=== PATIENT | male | born 1950 | race Caucasian/White ===

== ENCOUNTER 2017-08-30 16:47 | Inpatient (IN) | payer OTHER, MEDICARE ==
[~2017-08-30] VITALS: Ht 182.9 cm; Wt 65.7 kg
[2017-08-30] MEDS ORDERED: BISACODYL 10 MG SUPP RECTAL PRN (17:45)
[2017-08-30] MEDS ORDERED: TEMAZEPAM 15 MG CAP PO PRN (17:45)
[2017-08-30] MEDS ORDERED: ONDANSETRON HCL 4 MG/2 ML VIAL IVP PRN (17:45)
[2017-08-30] MEDS ORDERED: MAGNESIUM HYDROXIDE SUSP 30 ML CUP PO PRN (17:45)
[2017-08-30] MEDS ORDERED: NALOXONE HCL 0.4 MG/ML AMP IV PUSH PRN (17:45)
[2017-08-30] MEDS ORDERED: LACTULOSE SYRUP 20 GM/30 ML CUP PO PRN (17:45)
[2017-08-30] MEDS ORDERED: ACETAMINOPHEN 325 MG TAB PO PRN ×2 (17:45)
[2017-08-30] MEDS ORDERED: SENNOSIDES 8.6 MG TAB PO PRN (17:45)
[2017-08-30] MEDS ORDERED: METOCLOPRAMIDE HCL 10 MG/2 ML VIAL IV PUSH PRN (17:45)
[2017-08-30] MEDS ORDERED: HYDROmorphone HCL PF 2 MG/ML VIAL IV PRN ×3 (18:00)
[2017-08-30] MEDS ORDERED: DEXAMETHASONE SOD PHOS 20 MG/5 ML VIAL IV PUSH ONE (18:00)
--- NOTE | 2017-08-30 18:03 | HHI.HP ---
[facility] No Primary Care Physician Admission Diagnosis Intractable back pain Diagnoses: (1) Intractable back pain Diagnosis: Principal (2) History of head and neck cancer Diagnosis: Principal (3) Malignant neoplasm metastatic to lumbar spine with unknown primary site Diagnosis: Principal (4) History of dysphasia Diagnosis: Principal Chief Complaint: Back pain Travel History International Travel<30 Days: No Contact w/Intl Traveler <30 Da: No Traveled to Known Affected Are: No History of Present Illness Written by Gracie Lu, acting as scribe for Dr. Frost on 08/30/17 at 17: 59. is a 67-year-old male with past medical history significant for head and neck cancer s/p chemo and radiation therapy in May 2016 with subsequent dysphasia requiring PEG tube placement for feeding who presents to the hospital as a direct admit from patient's oncologist . Review of Dr. Murrieta's note, patient presented to her office to establish care. Noted to have intractable back pain, along with diffuse body pain, decreased appetite, and unintentional weight loss. Patient underwent nuclear medicine bone scan on August 22 which showed heterogeneous increased bony uptake from the mid thoracic region through the sacrum involving bony pelvic ring proximal Femara in multiple ribs. Review of note also reveals patient underwent MRI of thoracic spine with contrast on 08/22 and revealed post radiation changes of the spine with metastases lesions greatest at T9 and T10 with minimal loss of height at these levels. Enhancement of anterior lateral paravertebral regions as well as the anterior epidural space at T7-T11. Patient was noted to have intractable pain while at Dr. Schumacher's office, referred to ED for direct admission. Patient is seen and examined in his bed resting comfortably, does not appear to be in any pain. Reports that over the past several weeks he has been taking oxycodone for pain control and complains of increased dry mouth. He is also been eating minimally trying to eat enough calories, swelling has become difficult due to dry mouth. He reports back and lower back pain which is increased in severity when he stands or moves. He is also complaining of anterior thigh pain when elevating legs off of bed. Review of Systems Constitutional: COMPLAINS OF: Fatigue, Weight loss, Change in appetite, DENIES : Diaphoretic episodes, Fever, Weight gain, Chills, Dizziness, Night Sweats Endocrine: DENIES: Heat/cold intolerance, Polydipsia, Polyuria, Polyphagia Eyes: DENIES: Blurred vision, Diplopia, Eye inflammation, Eye pain, Vision loss , Photosensitivity Ears, nose, mouth, throat: COMPLAINS OF: Odynophagia, DENIES: Tinnitus, Hearing loss, Vertigo, Nasal discharge, Oral lesions Respiratory: DENIES: Apneas, Cough, Snoring, Wheezing, Hemoptysis, Sputum production, Shortness of breath Cardiovascular: DENIES: Chest pain, Palpitations, Syncope, Dyspnea on Exertion , PND, Lower Extremity Edema, Orthopnea Gastrointestinal: DENIES: Abdominal pain, Black stools, Bloody stools, Constipation, Diarrhea, Nausea, Vomiting Genitourinary: DENIES: Sexual dysfunction, Urinary frequency Musculoskeletal: COMPLAINS OF: Back pain, DENIES: Joint pain, Muscle aches, Stiffness, Joint Swelling Integumentary: DENIES: Abnormal pigmentation, Nail changes, Pruritus, Rash Hematologic/lymphatic: DENIES: Bruising, Lymphadenopathy Immunologic/allergic: DENIES: Eczema, Urticaria Neurologic: COMPLAINS OF: Abnormal gait, DENIES: Headache, Localized weakness, Paresthesias, Seizures, Speech Problems, Tremor, Poor Balance Psychiatric: DENIES: Anxiety, Confusion, Mood changes, Depression, Hallucinations, Agitation, Suicidal Ideation, Homicidal Ideation, Delusions Except as stated in HPI: all other systems reviewed are Neg Past Family Social History Past Medical History Head and neck cancer s/p chemo and radiation Past Surgical History Pyloric stenosis surgery Plantar wart removal Left lymph node biopsy Right upper chest port placement and removal PEG tube insertion and removal Reported Medications flomax norco Allergies: Coded Allergies: No Known Allergies (Unverified , 08/30/17) Active Ordered Medications Current Medications Sodium Chloride 1,000 ml @ 100 mls/hr Q10H IV ; Start 08/30/17 at 18:00 Sodium Chloride (NS Flush) 2 ml UNSCH PRN IV FLUSH FLUSH AFTER USING IV ACCESS ; Start 08/30/17 at 17:45 Sodium Chloride (NS Flush) 2 ml BID IV FLUSH ; Start 08/30/17 at 21:00 Acetaminophen (Tylenol) 650 mg Q4H PRN PO TEMP > 100.4; Start 08/30/17 at 17:45 Ondansetron HCl (Zofran Inj) 4 mg Q6H PRN IVP NAUSEA OR VOMITING; Start at 17:45 Metoclopramide HCl (Reglan Inj) 5 mg Q6H PRN IV PUSH NAUSEA OR VOMITING; Start 08/30/17 at 17:45 Temazepam (Restoril) 15 mg HS PRN PO INSOMNIA; Start 08/30/17 at 17:45 Acetaminophen (Tylenol) 650 mg Q6H PRN PO PAIN SCALE 1 TO 2; Start 08/30/17 at 17:45 Oxycodone/ Acetaminophen (Percocet 5-325 Mg) 1 tab Q6H PRN PO PAIN SCALE 3 TO 5; Start 08/30/17 at 17:45 Oxycodone/ Acetaminophen (Percocet 10-325 Mg) 1 tab Q6H PRN PO PAIN SCALE 6 TO 10; Start 08/30/17 at 17:45 Hydromorphone HCl (Dilaudid Pf Inj) 0.5 mg Q3H PRN IV Pain 3-5; if unable to take PO; Start 08/30/17 at 18:00 Hydromorphone HCl (Dilaudid Pf Inj) 1 mg Q3H PRN IV Pain 6-10;if unable to take PO; Start 08/30/17 at 18:00 Hydromorphone HCl (Dilaudid Pf Inj) 1 mg Q3H PRN IV BREAKTHROUGH PAIN; Start at 18:00 Naloxone HCl (Narcan Inj) 0.4 mg UNSCH PRN IV PUSH SEE LABEL COMMENTS; Start at 17:45 Senna/Docusate Sodium (Palma-Colace) 1 tab BID PO ; Start 08/30/17 at 21:00 Magnesium Hydroxide (Milk Of Magnesia Liq) 30 ml Q12H PRN PO Mild constipation ; Start 08/30/17 at 17:45 Sennosides (Senokot) 17.2 mg Q12H PRN PO Moderate constipation; Start 08/30/17 at 17:45 Bisacodyl (Dulcolax Supp) 10 mg DAILY PRN RECTAL SEVERE CONSITIPATION; Start at 17:45 Lactulose (Lactulose Liq) 30 ml DAILY PRN PO SEVERE CONSITIPATION; Start at 17:45 Tamsulosin HCl (Flomax) 0.4 mg DAILY PO ; Start 08/30/17 at 19:00 Dexamethasone Sodium Phosphate (Decadron Inj) 10 mg ONCE ONCE IV PUSH ; Start 08/30/17 at 18:00; Stop 08/30/17 at 18:05; Status DC Dexamethasone Sodium Phosphate (Decadron Inj) 4 mg Q8HR IV PUSH ; Start at 22:00 Famotidine (Pepcid Inj) 20 mg Q12H IV PUSH ; Start 08/30/17 at 18:00 Pilocarpine (Salagen) 5 mg Q8HR PO ; Start 08/30/17 at 22:00 Family History Mother: from lung cancer with metastasis to the brain Father: from natural causes Social History Tobacco: Denies Alcohol use: Used to smoke 3-4 beers in the past, none recently Illicit drug use: Denies Physical Exam Physical Exam GENERAL: This is a thin male, well-developed patient, in no apparent distress. SKIN: No rashes, ecchymoses or lesions. Cool and dry. HEAD: Atraumatic. Normocephalic. No temporal or scalp tenderness. EYES: Pupils equal round and reactive. Extraocular motions intact. No scleral icterus. No injection or drainage. ENT: Nose without bleeding, purulent drainage or septal hematoma. Throat without erythema, mucous membranes dry. Uvula midline. Airway patent. NECK: Trachea midline. No JVD or lymphadenopathy. Supple. CARDIOVASCULAR: Regular rate and rhythm without murmurs, gallops, or rubs. RESPIRATORY: Clear to auscultation. Breath sounds equal bilaterally. No wheezes , rales, or rhonchi. GASTROINTESTINAL: Abdomen soft, non-tender, nondistended. No guarding. MUSCULOSKELETAL: Extremities without clubbing, cyanosis, or edema. No joint tenderness, effusion, or edema noted. No calf tenderness. Negative Homans sign bilaterally. NEUROLOGICAL: Awake and alert x3. Cranial nerves II through XII intact. Motor and sensory grossly within normal limits. Five out of 5 muscle strength in all muscle groups. Normal speech. Caprini VTE Risk Assessment Caprini VTE Risk Assessment: Mod/High Risk (score >= 2) Caprini Risk Assessment Model Point Value = 1 Point Value = 2 Point Value = 3 Point Value = 5 Age 41-60 Minor surgery BMI > 25 kg/m2 Swollen legs Varicose veins or History of unexplained or recurrent spontaneous Oral contraceptives or hormone replacement Sepsis (< 1 month) Serious lung disease, including pneumonia (< 1 month) Abnormal pulmonary function Acute myocardial infarction Congestive heart failure (< 1 month) History of inflammatory bowel disease Medical patient at bed rest Age 61-74 Arthroscopic surgery Major open surgery (> 45 min) Laparoscopic surgery (> 45 min) Malignancy Confined to bed (> 72 hours) Immobilizing plaster cast Central venous access Age >= 75 History of VTE Family history of VTE Factor V Leiden Prothrombin [id number] Lupus anticoagulant Anticardiolipin antibodies Elevated serum homocysteine Heparin-induced thrombocytopenia Other congenital or acquired thrombophilia Stroke (< 1 month) Elective arthroplasty Hip, pelvis, or leg fracture Acute spinal cord injury (< 1 month) Prophylaxis Regimen Total Risk Factor Score Risk Level Prophylaxis Regimen 0-1 Low Early ambulation 2 Moderate Order ONE of the following: *Sequential Compression Device (SCD) *Heparin 5000 units SQ BID 3-4 Higher Order ONE of the following medications: *Heparin 5000 units SQ TID *Enoxaparin/Lovenox 40 mg SQ daily (WT < 150 kg, CrCl > 30 mL/min) *Enoxaparin/Lovenox 30 mg SQ daily (WT < 150 kg, CrCl > 10-29 mL/min) *Enoxaparin/Lovenox 30 mg SQ BID (WT < 150 kg, CrCl > 30 mL/min) AND/OR *Sequential Compression Device (SCD) 5 or more Highest Order ONE of the following medications: *Heparin 5000 units SQ TID (Preferred with Epidurals) *Enoxaparin/Lovenox 40 mg SQ daily (WT < 150 kg, CrCl > 30 mL/min) *Enoxaparin/Lovenox 30 mg SQ daily (WT < 150 kg, CrCl > 10-29 mL/min) *Enoxaparin/Lovenox 30 mg SQ BID (WT < 150 kg, CrCl > 30 mL/min) AND *Sequential Compression Device (SCD) Assessment and Plan Assessment and Plan Authenticated by Dr. Amrit Frost on 08/30/17 at 18:37. 67-year-old male with past medical history significant for head and neck cancer who presents to the hospital as a direct admission after being referred here from his medical oncologist Dr. Murrieta due to intractable pain, concern for metastatic lesions. Intractable pain Metastatic lesions Hx of head and neck CA -Per Dr. Murrieta's note patient underwent chemoradiation for head and neck cancer. -Nuclear medicine bone scan completed on 08/22 with increased uptake in mid thoracic region, subsequent MRI showing metastatic lesions greatest at T9,T10. Ther are also noted lateral paravertebral regions on anterior epidural space at T7-T11 indenting the anterior thecal sac. - Patient admitted to observation - Consult placed for medical oncologist - Consult place for orthopedic serviced, appreciate evaluation and recommendations - Consult for IR for biopsy of lumbar/thoracic lesion - Pain control with p.o. Percocet, IV Dilaudid for breakthrough pain -IV Decadron 10 mg 1 now, 4 mg every 8 hours -PT/OT Weight loss Poor p.o. intake -Likely secondary to metastatic disease. IV fluids for hydration -Regular diet with boost shakes 3 times daily BPH - continue Flomax DVT prophylaxis- SCD's and TEDs, no chemical prophylaxis secondary to possible planned bone biopsy GI- PO Pepcid This note was transcribed by GLEN Gant. I, Dr. Amrit Frost personally performed the history, physical exam, and medical decision making; and confirmed the accuracy of the information in the transcribed note. Code Status full code Discussed Condition With GLEN AND Gracie Perrin Aug 30, 2017 18:03 Amrit Frost DO Aug 30, 2017 18:38
[2017-08-30 18:05] VITALS: BP 138/71; PULSE 95; RESP 18; TEMP 97.2; O2SAT 98
[2017-08-30] MEDS: FAMOTIDINE 20 MG/2 ML VIAL IV PUSH SCH (18:36)
[2017-08-30] MEDS: SODIUM CHLOR 0.9% 1000 ML INJ 1,000 ML IV SCH (18:36)
[2017-08-30] MEDS: TAMSULOSIN HCL 0.4 MG CAP PO SCH (18:37)
[2017-08-30 20:05] VITALS: BP 127/69; PULSE 89; RESP 18; TEMP 98.5; O2SAT 98
[2017-08-30] MEDS: SODIUM CHLORIDE 0.9% FLUSH 10 ML FLUSH IV FLUSH SCH (21:00)
[2017-08-30 21:54] VITALS: O2SAT 98
[2017-08-30] MEDS: PILOCARPINE HCL 5 MG TAB PO SCH (21:55)
[2017-08-30] MEDS: DOCUSATE SODIUM 50 MG/SENNA 8.6 MG TAB PO SCH (21:55)
[2017-08-30] MEDS: DEXAMETHASONE SOD PHOS 4 MG/ML VIAL IV PUSH SCH (21:55)
[2017-08-30 23:05] VITALS: BP 155/66; PULSE 99; RESP 18; TEMP 97.3; O2SAT 98
[2017-08-31] VITALS (7 sets, daily range): BP systolic 111–132; BP diastolic 62–69; PULSE 86–101; RESP 17–18; TEMP 96.1–98.6; O2SAT 97–100
[2017-08-31] MEDS: SODIUM CHLOR 0.9% 1000 ML INJ 1,000 ML IV SCH ×2 (05:22→15:16)
[2017-08-31] MEDS: DEXAMETHASONE SOD PHOS 4 MG/ML VIAL IV PUSH SCH ×3 (05:24→23:22)
[2017-08-31] MEDS: PILOCARPINE HCL 5 MG TAB PO SCH ×3 (05:25→23:23)
[2017-08-31] MEDS: FAMOTIDINE 20 MG/2 ML VIAL IV PUSH SCH ×2 (05:25→17:02)
[2017-08-31] MEDS: oxyCODONE/ACETAMINOPHEN 5 MG/325 MG TAB PO PRN ×2 (05:27→11:07)
[2017-08-31] MEDS: SODIUM CHLORIDE 0.9% FLUSH 10 ML FLUSH IV FLUSH PRN (05:32)
[2017-08-31 06:57] LABS: BASOPHIL # 0.1 TH/MM3 (0-0.2); BASOPHIL % 0.9 % (0.0-2.0); EOSINOPHIL % 0.6 % (0.0-4.0); HEMATOCRIT 27.7 % (39.0-51.0); HEMOGLOBIN 9.6 GM/DL (13.0-17.0); LYMPH % 8.2 % (9.0-44.0); LYMPHOCYTE # 0.7 TH/MM3 (1.0-4.8); MEAN CELL VOLUME 90.1 FL (80.0-100.0); MEAN CORPUSCULAR HEMOGLOBIN 31.2 PG (27.0-34.0); MEAN CORPUSCULAR HGB CONC 34.6 % (32.0-36.0); MONO % 5.6 % (0.0-8.0); MONOCYTE # 0.5 TH/MM3 (0-0.9); NEUT % 84.7 % (16.0-70.0); PLATELET COUNT 207 TH/MM3 (150-450); RED BLOOD COUNT 3.07 MIL/MM3 (4.50-5.90); RED CELL DISTRIBUTION WIDTH 15.4 % (11.6-17.2); WHITE BLOOD COUNT 8.2 TH/MM3 (4.0-11.0)
[2017-08-31 07:14] LABS: AST (GOT) 90 U/L (15-37); BICARBONATE 23.6 MEQ/L (21.0-32.0); BLOOD UREA NITROGEN 20 MG/DL (7-18); CALCIUM 9.6 MG/DL (8.5-10.1); CHLORIDE 102 MEQ/L (98-107); CREATININE 0.82 MG/DL (0.60-1.30); GLOMERULAR FILTRATION RATE 93 ML/MIN (>89); GLUCOSE,RANDOM 118 MG/DL (74-106); MAGNESIUM 2.1 MG/DL (1.5-2.5); SODIUM (NA) 137 MEQ/L (136-145)
[2017-08-31 07:16] LABS: ALT (GPT) 16 U/L (12-78); PHOSPHORUS 3.5 MG/DL (2.5-4.9)
[2017-08-31 07:24] LABS: ALKALINE PHOSPHATASE 163 U/L (45-117); FREE T4 0.98 NG/DL (0.76-1.46); TOTAL BILIRUBIN ADULT 0.4 MG/DL (0.2-1.0)
[2017-08-31] MEDS: TAMSULOSIN HCL 0.4 MG CAP PO SCH (08:06)
--- NOTE | 2017-08-31 08:16 | PD.CONS ---
HPI Service [facility] Surgeons Consult Requested By Reason for Consult Suspected metastatic spine lesions with T9/T10 pathologic compression deformities Primary Care Physician No Primary Care Physician Admission Diagnosis Intractable back pain Diagnoses: (1) Intractable back pain Diagnosis: Principal (2) History of head and neck cancer Diagnosis: Principal (3) Malignant neoplasm metastatic to lumbar spine with unknown primary site Diagnosis: Principal (4) History of dysphasia Diagnosis: Principal Chief Complaint: back pain History of Present Illness Patient is a 67-year-old gentleman who presented to my office approximately 1-1/ 2 weeks ago with thoracic back pain. On radiographs there was suspicion for compression deformities of indeterminate age. I ordered an MRI at that time which was suspicious for pathologic lesions throughout his entire thoracic and lumbar spine. With that in mind, I ordered stat MRI with contrast and whole body bone scan which demonstrated extensive bony lesions including into his pelvis and proximal femurs and referred the patient for oncology evaluation prior to any spine intervention given he had no history of metastatic cancer and only localized head and neck cancer which reportedly in July 2017, his oncologist told him was essentially cancer free. Patient saw oncologist, Dr. Murrieta yesterday and was directly admitted to the hospital. He continues to complain of the same back pain. He has no neurologic complaints. He has no weakness. Past Family Social History Past Medical History Head and neck cancer s/p chemo and radiation Past Surgical History Pyloric stenosis surgery Plantar wart removal Left lymph node biopsy Right upper chest port placement and removal PEG tube insertion and removal Allergies: Coded Allergies: No Known Allergies (Unverified , 08/30/17) Active Ordered Medications Current Medications Medications (Trade) Dose Ordered Sig/Kristi Route Start Time Stop Time Status Last Admin Sodium Chloride 1,000 ml @ 100 mls/hr Q10H IV 08/30/17 18:00 08/31/17 05:22 (NS Flush) 2 ml UNSCH PRN IV FLUSH 08/30/17 17:45 08/31/17 05:32 (NS Flush) 2 ml BID IV FLUSH 08/30/17 21:00 (Tylenol) 650 mg Q4H PRN PO 08/30/17 17:45 (Zofran Inj) 4 mg Q6H PRN IVP 08/30/17 17:45 (Reglan Inj) 5 mg Q6H PRN IV PUSH 08/30/17 17:45 (Restoril) 15 mg HS PRN PO 08/30/17 17:45 (Tylenol) 650 mg Q6H PRN PO 08/30/17 17:45 (Percocet 5-325 Mg) 1 tab Q6H PRN PO 08/30/17 17:45 08/31/17 05:27 (Percocet 10-325 Mg) 1 tab Q6H PRN PO 08/30/17 17:45 (Dilaudid Pf Inj) 0.5 mg Q3H PRN IV 08/30/17 18:00 (Dilaudid Pf Inj) 1 mg Q3H PRN IV 08/30/17 18:00 (Dilaudid Pf Inj) 1 mg Q3H PRN IV 08/30/17 18:00 (Narcan Inj) 0.4 mg UNSCH PRN IV PUSH 08/30/17 17:45 (Palma-Colace) 1 tab BID PO 08/30/17 21:00 08/30/17 21:55 (Milk Of Magnesia Liq) 30 ml Q12H PRN PO 08/30/17 17:45 (Senokot) 17.2 mg Q12H PRN PO 08/30/17 17:45 (Dulcolax Supp) 10 mg DAILY PRN RECTAL 08/30/17 17:45 (Lactulose Liq) 30 ml DAILY PRN PO 08/30/17 17:45 (Flomax) 0.4 mg DAILY PO 08/30/17 19:00 08/31/17 08:06 (Decadron Inj) 4 mg Q8HR IV PUSH 08/30/17 22:00 08/31/17 05:24 (Pepcid Inj) 20 mg Q12H IV PUSH 08/30/17 18:00 08/31/17 05:25 (Salagen) 5 mg Q8HR PO 08/30/17 22:00 08/31/17 05:25 Family History Mother: from lung cancer with metastasis to the brain Father: from natural causes Social History Tobacco: Denies Alcohol use: Used to smoke 3-4 beers in the past, none recently Illicit drug use: Denies Physical Exam Vital Signs Vital Signs Date Time Temp Pulse Resp B/P (MAP) Pulse Ox O2 Delivery O2 Flow Rate FiO2 08/31/17 04:00 96.7 96 18 122/69 (86) 97 08/30/17 23:05 97.3 99 18 155/66 (95) 98 08/30/17 21:54 98 21 08/30/17 20:05 98.5 89 18 127/69 (88) 98 08/30/17 18:05 97.2 95 18 138/71 (93) 98 Laboratory Laboratory Tests Test 08/31/17 05:09 White Blood Count 8.2 Red Blood Count 3.07 Hemoglobin 9.6 Hematocrit 27.7 Mean Corpuscular Volume 90.1 Mean Corpuscular Hemoglobin 31.2 Mean Corpuscular Hemoglobin Concent 34.6 Red Cell Distribution Width 15.4 Platelet Count 207 Mean Platelet Volume 7.0 Neutrophils (%) (Auto) 84.7 Lymphocytes (%) (Auto) 8.2 Monocytes (%) (Auto) 5.6 Eosinophils (%) (Auto) 0.6 Basophils (%) (Auto) 0.9 Neutrophils # (Auto) 7.0 Lymphocytes # (Auto) 0.7 Monocytes # (Auto) 0.5 Eosinophils # (Auto) 0.0 Basophils # (Auto) 0.1 CBC Comment AUTO DIFF Blood Urea Nitrogen 20 Creatinine 0.82 Random Glucose 118 Total Protein 7.0 Albumin 3.0 Calcium Level 9.6 Phosphorus Level 3.5 Magnesium Level 2.1 Alkaline Phosphatase 163 Aspartate Amino Transf (AST/SGOT) 90 Alanine Aminotransferase (ALT/SGPT) 16 Total Bilirubin 0.4 Sodium Level 137 Potassium Level 3.9 Chloride Level 102 Carbon Dioxide Level 23.6 Anion Gap 11 Estimat Glomerular Filtration Rate 93 Free Thyroxine 0.98 Thyroid Stimulating Hormone 3rd Gen 1.330 Result Diagram: 08/31/17 0509 08/31/17 0509 Assessment & Plan Assessment and Plan 67-year-old gentleman with suspected metastatic cancer, along with T9 and T10 pathologic compression deformities 1. Interventional radiology has been consulted for biopsy of the thoracic and lumbar lesions for tissue diagnosis. I will follow for results. 2. Should the patient be a good candidate for bone cement augmentation with kyphoplasty, I'm available to perform provided oncology agrees with this plan. 3. Oncology following. I will follow for recommendations regarding possible sensitivity to radiation for the other metastatic lesions in his spine, pelvis and proximal femurs. 4. Patient can be mobilized as tolerated. I did offer the patient a brace and office however he was not interested. Patient does not require bracing but if he would like one, this is not unreasonable. Patient should not be on bed rest. Jigna Landers MD Aug 31, 2017 08:16
[2017-08-31] MEDS: SODIUM CHLORIDE 0.9% FLUSH 10 ML FLUSH IV FLUSH SCH ×2 (08:53→23:23)
[2017-08-31] MEDS: DOCUSATE SODIUM 50 MG/SENNA 8.6 MG TAB PO SCH ×2 (08:53→23:23)
[2017-08-31 09:37] LABS: BANDS 4 % (0-6); BASOPHILS 1 % (0-2); CORRECTED NUCLEATED RBC 2 /100 WBC (0-0); LYMPHOCYTES 7 % (9-44); METAMYELOCYTES 5 % (0-1); MONOCYTES 5 % (0-8); NEUTROPHIL # MANUAL DIFF 7.1 TH/MM3 (1.8-7.7); NUCLEATED RED BLOOD CELL 2 (0-0); POLYS (SEG NEUTROPHILS) 78 % (16-70)
[2017-08-31 11:12] LABS: INTERNATIONAL NORMALIZED RATIO 1.4 RATIO
--- NOTE | 2017-08-31 12:49 | HHI.PR ---
Subjective Remarks Patient seen this morning around 9 AM. Says pain is controlled. Denies any chest pain or shortness of breath. Denies any nausea or vomiting. Objective Vital Signs Date Time Temp Pulse Resp B/P (MAP) Pulse Ox O2 Delivery O2 Flow Rate FiO2 08/31/17 12:00 96.2 97 17 114/68 (83) 98 08/31/17 08:00 96.1 101 17 131/68 (89) 98 08/31/17 04:00 96.7 96 18 122/69 (86) 97 08/30/17 23:05 97.3 99 18 155/66 (95) 98 08/30/17 21:54 98 21 08/30/17 20:05 98.5 89 18 127/69 (88) 98 08/30/17 18:05 97.2 95 18 138/71 (93) 98 I/O 08/30/17 08/30/17 08/30/17 08/31/17 08/31/17 08/31/17 07:00 15:00 23:00 07:00 15:00 23:00 Intake Total 360 ml 1581 ml Balance 360 ml 1581 ml Intake Oral 360 ml 480 ml IV Total 1101 ml # Voids 1 2 # Bowel Movements 0 0 Result Diagram: 08/31/17 0509 08/31/17 0509 Objective Remarks GENERAL: Patient lying in bed. Appears comfortable. Alert and oriented 3 SKIN: Warm and dry. HEAD: Normocephalic. EYES: No scleral icterus. No injection or drainage. NECK: Supple, trachea midline. No JVD. CARDIOVASCULAR: Regular rate and rhythm without murmurs, gallops, or rubs. RESPIRATORY: Breath sounds equal bilaterally. No accessory muscle use. GASTROINTESTINAL: Abdomen soft, non-tender, nondistended. MUSCULOSKELETAL: No cyanosis, or edema. BACK: Nontender without obvious deformity. No CVA tenderness. A/P Assessment and Plan 67-year-old male with past medical history significant for head and neck cancer who presents to the hospital as a direct admission after being referred here from his medical oncologist Dr. Murrieta due to intractable pain, concern for metastatic lesions. //Intractable pain //Metastatic lesions Hx of head and neck CA -Per Dr. Murrieta's note patient underwent chemoradiation for head and neck cancer. -Nuclear medicine bone scan completed on 08/22 with increased uptake in mid thoracic region, subsequent MRI showing metastatic lesions greatest at T9,T10. Ther are also noted lateral paravertebral regions on anterior epidural space at T7-T11 indenting the anterior thecal sac. - Patient admitted to observation - Consult placed for medical oncologist - Consult place for orthopedic serviced, appreciate evaluation and recommendations - Consult for IR for biopsy of lumbar/thoracic lesion - Pain control with p.o. Percocet, IV Dilaudid for breakthrough pain -IV Decadron 10 mg 1 now, 4 mg every 8 hours -PT/OT = Plan for biopsy today. INR 1.4. Follow-up oncology recommendations. //Weight loss //Poor p.o. intake -Likely secondary to metastatic disease. IV fluids for hydration -Regular diet with boost shakes 3 times daily //BPH - continue Flomax //DVT prophylaxis- SCD's and TEDs, no chemical prophylaxis secondary to possible planned bone biopsy GI- PO Pepcid Discharge Planning Generalized weakness. Awaiting PT and OT recommendations. Chace Neff MD Aug 31, 2017 12:49
[2017-08-31] MEDS ORDERED: MIDAZOLAM HCL 2 MG/2 ML VIAL ONE (13:13)
--- NOTE | 2017-08-31 13:47 | PD.RAD ---
Post Procedure Progress Note Pre Procedure Diagnosis: (1) Malignant neoplasm metastatic to lumbar spine with unknown primary site Post Procedure Diagnosis: (1) Malignant neoplasm metastatic to lumbar spine with unknown primary site Procedure Date: Aug 31, 2017 Supervising Radiologist: José Luis Chun Estimated blood loss: none Anesthesia: Local, Conscious Sedation Plan of Activity Patient to Unit: [facility] Patient Condition: Poor Additional Comments: PT evaluated by CT prior to biopsy Large destructive lesion in the right ilium identified and targeted for biopsy. Two 18ga core samples taken. Full dictated report to follow. See PACS Report for procedural detail/treatment José Luis Chun MD Aug 31, 2017 13:47
--- NOTE | 2017-08-31 15:56 | RADRPT ---
EXAM DATE/TIME: 08/31/2017 13:03 [place] COMPARISON: No previous studies available for comparison. INDICATIONS : Multiple bone lesions. SEDATION TIME: 30 minutes BIOPSY SITE: Right iliac MEDICATION(S): 1.) 2 mg midazolam (Versed) IV 2.) 100 mcg fentanyl (Sublimaze) IV DEVICE(S): 1.) 18 gauge Biopsy gun MEDICAL HISTORY : Head and neck cancer SURGICAL HISTORY : None. ENCOUNTER: Initial ACUITY: 1 day PAIN SCORE: 0/10 LOCATION: Right pelvis A total of one core specimen(s) were obtained and sent to the laboratory for pathologic evaluation. PROCEDURE: 1. CT guided pelvic biopsy. 2. Conscious sedation with continuous EKG and oximetry monitoring. Prior to the procedure informed consent was obtained. Any appropriate prior imaging studies were rev iewed. Using automated exposure control and adjustment of the mA and/or kV according to patient size, radiat ion dose was kept as low as reasonably achievable to obtain optimal diagnostic quality images. DICOM format image data is available electronically for review and comparison. The site was prepped in a sterile fashion. Full sterile technique was used, including cap, mask, angel rile gloves and gown and a large sterile sheet. Hand hygiene and 2% chlorhexidine and/or betadine/al cohol prep was utilized per protocol for cutaneous antisepsis. The skin and subcutaneous tissues wer e infiltrated with local anesthetic solution. With CT guidance a destructive lesion in the right iliac wing was localized. 2 core biopsies were nash en using an 18 gauge Temno biopsy gun. Adequate hemostasis was obtained with compression at the punct ure site. Follow-up CT scan reveals no hemorrhage. The patient tolerated the procedure well and there were no complications. The patient was returned to the Radiology Outpatient Unit in stable condition. CONCLUSION: Uncomplicated CT guided biopsy. José Luis Chun MD on August 31, 2017 at 15:54 Board Certified Radiologist. This report was verified electronically.
[2017-08-31 16:58] LABS: HEMOGLOBIN A1C 4.9 % (4.3-6.0)
[2017-08-31] MEDS: oxyCODONE/ACETAMINOPHEN 10 MG/325 MG TAB PO PRN (17:02)
--- NOTE | 2017-08-31 17:06 | OTSOAPIP ---
TIME SESSION COMPLETED: PM TREATMENT TIME: 0 MINS. CHART REVIEWED. ATTEMPTED TO SEE FOR OT EVALUATION, HOWEVER OFF FLOOR FOR PROCEDURE. WILL FOLLOW NEXT DAY. Therapist: NICOLE LANCASTER OT/Judy Signature on file
[2017-09-01 04:00] VITALS: BP_SYST 133; BP_SYST 142; BP_DIAS 70; BP_DIAS 85; PULSE 72; PULSE 94; RESP 18; TEMP 96.5; TEMP 96.6; O2SAT 97; O2SAT 99
[2017-09-01] MEDS: oxyCODONE/ACETAMINOPHEN 10 MG/325 MG TAB PO PRN ×4 (04:09→23:25)
[2017-09-01] MEDS: DEXAMETHASONE SOD PHOS 4 MG/ML VIAL IV PUSH SCH ×3 (06:00→23:26)
[2017-09-01] MEDS: PILOCARPINE HCL 5 MG TAB PO SCH ×3 (06:00→23:25)
[2017-09-01] MEDS: FAMOTIDINE 20 MG/2 ML VIAL IV PUSH SCH ×2 (06:30→17:17)
[2017-09-01 08:00] VITALS: BP 121/70; PULSE 94; RESP 18; TEMP 97.1; O2SAT 97
[2017-09-01] MEDS: TAMSULOSIN HCL 0.4 MG CAP PO SCH (08:56)
[2017-09-01] MEDS: DOCUSATE SODIUM 50 MG/SENNA 8.6 MG TAB PO SCH ×2 (08:56→23:26)
[2017-09-01] MEDS: SODIUM CHLORIDE 0.9% FLUSH 10 ML FLUSH IV FLUSH SCH ×2 (09:00→23:26)
[2017-09-01] MEDS: SODIUM CHLOR 0.9% 1000 ML INJ 1,000 ML IV SCH ×3 (10:17→23:26)
--- NOTE | 2017-09-01 11:49 | PD.CONS ---
History of Present Illness Service Hematology/Oncology Consult Requested By Dr. Frost Reason for Consult Metastatic bony lesions. Primary Care Physician No Primary Care Physician Diagnoses: (1) Intractable back pain (2) History of head and neck cancer (3) Malignant neoplasm metastatic to lumbar spine with unknown primary site History of Present Illness Mr. Ramirez is a 67-year-old gentleman with a history of head and neck cancer who initially established in oncology clinic on Monday and was admitted to the hospital with intractable pain and further work up of malignancy as he has diffuse bony metastatic disease as well as epidural mass. He has a history of head and neck cancer that was diagnosed in May 2016 and treated with concurrent chemotherapy and radiation therapy. He reports that he received his care up in [place] and since that time his disease has been in remission.Within the past month he has moved to [place] from [place]. He has a good support system with his son. He reports that he has been having intractable diffuse body pain over the past several months this is been curving progressively worsening where he is unable to walk and to move around due to pain. He has been referred to an orthopedic doctor Dr. Landers for further evaluation and management of his painHe underwent on August 22 a nuclear medicine bone scan which showed heterogeneous increased bony uptake from the mid thoracic region through the sacrum involving the bony pelvic ring proximal Femara and multiple ribs. No focal abnormality seen in distal axial skeleton. MRI of the thoracic spine with contrast from August 22 with post radiation changes to the spine with metastatic lesions greatest at T9 and T10 with mild loss of height at these levels. Enhancement of the anterior lateral paravertebral regions as well as the anterior epidural space at T7-T11 which does indent the anterior thecal sac. He is s/p biopsy performed yesterday 08/31/2017. He reports that his pain is well controlled with the current regimen. His pain is exacerbated by movement. He reports some difficulty with movement around the room. He is anxious regarding results of the biopsy and determining plan of care. Review of Systems Constitutional: COMPLAINS OF: Fatigue Gastrointestinal: COMPLAINS OF: Constipation Musculoskeletal: COMPLAINS OF: Joint pain, Back pain Past Family Social History Allergies: Coded Allergies: No Known Allergies (Unverified , 08/30/17) Past Medical History History of head and neck cancer BPH Reported Medications Outpatient medications Timolol Flomax hydrocodone/tylenol Family History Parents . Social History Never smoker Social ETOH Physical Exam Vital Signs Vital Signs Date Time Temp Pulse Resp B/P (MAP) Pulse Ox O2 Delivery O2 Flow Rate FiO2 09/01/17 08:00 97.1 94 18 121/70 (87) 97 09/01/17 04:00 96.6 94 18 133/70 (91) 97 08/31/17 23:30 98.6 86 17 111/65 (80) 98 08/31/17 19:45 96.9 93 17 111/62 (78) 100 08/31/17 16:00 96.6 101 17 132/67 (88) 98 08/31/17 15:26 96.6 101 17 132/67 (88) 98 08/31/17 12:00 96.2 97 17 114/68 (83) 98 Physical Exam GENERAL: thin, chronically ill appearing man in no distress SKIN: No rashes HEAD: Atraumatic. Normocephalic. EYES: Pupils equal round and reactive. Extraocular motions intact. No scleral icterus. No injection or drainage. ENT: OP clear NECK: supple with no palpable LAD CARDIOVASCULAR: Regular rate and rhythm without murmurs, gallops, or rubs. RESPIRATORY: Clear to auscultation. Breath sounds equal bilaterally. No wheezes , rales, or rhonchi. GASTROINTESTINAL: Abdomen soft, non-tender, nondistended. No hepato-splenomegaly , or palpable masses. No guarding. MUSCULOSKELETAL:No edema NEUROLOGICAL: Awake and alert. Cranial nerves II through XII intact. Motor and sensory grossly within normal limits. Result Diagram: 08/31/17 0509 08/31/17 0509 Assessment and Plan Assessment and Plan Bony lesions and epidural mass highly suspicious for metastatic disease: s/p biopsy with results pending. Long discussion with patient. He reports that if the results are a metastatic solid tumor that would not be curable he would strongly consider hospice and comfort care. Will follow up on the results of the biopsy and discuss treatment options with patient when pathology returns. Will order CT CAP to complete staging Pain: well controlled with decreased activity and current oral pain medication regimen. He reports that he does not desire a long acting pain medication at this time due to opioid induced constipation. epidural mass with mild compression fractures on MRI: it seems that his pain not localized to vertebrae with loss of height, diffuse pain due to bony metastatic disease. Continue steroids. Zoila Murrieta MD Sep 01, 2017 11:49
[2017-09-01 12:00] VITALS: BP 121/64; PULSE 100; RESP 18; TEMP 97.7; O2SAT 100
[2017-09-01] MEDS ORDERED: DIATRIZOATE MEGLUM/DIATRIZOATE SOD 9 ML CUP PO ONE (12:30)
[2017-09-01] MEDS ORDERED: IOHEXOL 350 MG/ML 10 ML VIAL (for RAD DIAG) IVCONTRAST ONE (15:44)
[2017-09-01 15:56] VITALS: BP 118/66; PULSE 92; RESP 18; TEMP 98.2; O2SAT 98
--- NOTE | 2017-09-01 16:04 | RADRPT ---
EXAM DATE/TIME: 09/01/2017 15:38 [facility] COMPARISON: CT BONE BIOPSY, SUPERFICIAL, RIGHT, August 31, 2017, 13:03. INDICATIONS : Bony metastatic disease; evaluate for mass. IV CONTRAST: 99 cc Omnipaque 350 (iohexol) IV ; Cumulative dose for multiple exams. RADIATION DOSE: 5.13 CTDIvol (mGy) ; Combined studies - Thorax/Abdomen/Pelvis MEDICAL HISTORY : Throat and neck cancer. SURGICAL HISTORY : PEG tube. ENCOUNTER: Initial ACUITY: 1 day PAIN SCALE: 0/10 LOCATION: Bilateral lower quadrant TECHNIQUE: Volumetric scanning of the chest was performed. Using automated exposure control and adjustment of t he mA and/or kV according to patient size, radiation dose was kept as low as reasonably achievable to obtain optimal diagnostic quality images. DICOM format image data is available electronically for review and comparison. Follow-up recommendations for detected pulmonary nodules are based at a minimum on nodule size and pa tient risk factors according to Fleischner Society Guidelines. FINDINGS: LUNGS: Patchy air space disease is seen in both apices. There is no parenchymal metastatic disease. There is no axillary adenopathy There is no mediastinal adenopathy Upper abdominal contents are unremarkable Review of bone windows reveals widespread bony metastatic disease to both the axial and appendicular spine.. The most significant significant bony metastatic disease is in the lower thoracic spine. CONCLUSION: Widespread bony metastatic disease site of primarily not identified Amrit Chun MD FACR on September 01, 2017 at 15:58 Board Certified Radiologist. This report was verified electronically.
--- NOTE | 2017-09-01 16:07 | RADRPT ---
EXAM DATE/TIME: 09/01/2017 15:38 [facility] COMPARISON: No previous studies available for comparison. INDICATIONS : Short of breath, bony metastatic disease. IV CONTRAST: 99 cc Omnipaque 300 (iohexol) IV ; Cumulative dose for multiple exams. ORAL CONTRAST: Prescribed oral contrast ingested. RADIATION DOSE: 5.13 CTDIvol (mGy) ; Combined studies - Thorax/Abdomen/Pelvis MEDICAL HISTORY : Throat and neck cancer. SURGICAL HISTORY : Peg tube. ENCOUNTER: Initial ACUITY: 1 day PAIN SCALE: 4/10 LOCATION: Bilateral chest TECHNIQUE: Volumetric scanning of the abdomen and pelvis was performed. Using automated exposure control and ad justment of the mA and/or kV according to patient size, radiation dose was kept as low as reasonably achievable to obtain optimal diagnostic quality images. DICOM format image data is available electro nically for review and comparison. FINDINGS: Lower lungs are clear. Cyst is seen in the right lobe of the liver. Spleen, pancreas, adrenals and kidneys are unremarkable There is no intracranial adenopathy Pelvic contents are unremarkable Review of bone windows reveals widespread lytic lesions throughout the axial and appendicular spine. CONCLUSION: Widespread bony metastatic disease. Site of primary is not identified. Amrit Chun MD FACR on September 01, 2017 at 16:01 Board Certified Radiologist. This report was verified electronically.
--- NOTE | 2017-09-01 18:07 | HHI.PR ---
Subjective Remarks Patient seen this morning. Says he is feeling all right. Denies any chest pain or shortness of breath. Reports pain is controlled. Objective Vital Signs Date Time Temp Pulse Resp B/P (MAP) Pulse Ox O2 Delivery O2 Flow Rate FiO2 09/01/17 15:56 98.2 92 18 118/66 (83) 98 09/01/17 12:00 97.7 100 18 121/64 (83) 100 09/01/17 08:00 97.1 94 18 121/70 (87) 97 09/01/17 04:00 96.6 94 18 133/70 (91) 97 08/31/17 23:30 98.6 86 17 111/65 (80) 98 08/31/17 19:45 96.9 93 17 111/62 (78) 100 I/O 08/31/17 08/31/17 08/31/17 09/01/17 09/01/17 09/01/17 07:00 15:00 23:00 07:00 15:00 23:00 Intake Total 1581 ml 250 ml 360 ml 720 ml Balance 1581 ml 250 ml 360 ml 720 ml Intake Oral 480 ml 250 ml 360 ml 720 ml IV Total 1101 ml # Voids 2 5 2 3 # Bowel Movements 0 0 0 1 Result Diagram: 08/31/17 0509 08/31/17 0509 Objective Remarks GENERAL: Patient sitting up in bed. Appears comfortable. Alert and oriented 3 SKIN: Warm and dry. HEAD: Normocephalic. EYES: No scleral icterus. No injection or drainage. NECK: Supple, trachea midline. No JVD. CARDIOVASCULAR: Regular rate and rhythm without murmurs, gallops, or rubs. RESPIRATORY: Breath sounds equal bilaterally. No accessory muscle use. GASTROINTESTINAL: Abdomen soft, non-tender, nondistended. MUSCULOSKELETAL: No cyanosis, or edema. BACK: Nontender without obvious deformity. No CVA tenderness. A/P Assessment and Plan 67-year-old male with past medical history significant for head and neck cancer who presents to the hospital as a direct admission after being referred here from his medical oncologist Dr. Murrieta due to intractable pain, concern for metastatic lesions. //Intractable pain //Metastatic lesions Hx of head and neck CA -Per Dr. Murrieta's note patient underwent chemoradiation for head and neck cancer. -Nuclear medicine bone scan completed on 08/22 with increased uptake in mid thoracic region, subsequent MRI showing metastatic lesions greatest at T9,T10. Ther are also noted lateral paravertebral regions on anterior epidural space at T7-T11 indenting the anterior thecal sac. - Patient admitted to observation - Consult placed for medical oncologist - Consult place for orthopedic serviced, appreciate evaluation and recommendations - Consult for IR for biopsy of lumbar/thoracic lesion - Pain control with p.o. Percocet, IV Dilaudid for breakthrough pain -IV Decadron 10 mg 1 now, 4 mg every 8 hours -PT/OT = Plan for biopsy today. INR 1.4. Follow-up oncology recommendations. = Follow-up biopsy results. oncology following. Appreciate assistance. //Weight loss //Poor p.o. intake -Likely secondary to metastatic disease. IV fluids for hydration -Continue Regular diet with boost shakes 3 times daily //BPH - continue Flomax //DVT prophylaxis- SCD's and TEDs, no chemical prophylaxis secondary to recent bone biopsy. Plan start chemoprophylaxis tomorrow morning if no issues. GI- PO Pepcid Discharge Planning Generalized weakness. PT recommends home with home health PT Discharge when cleared by oncology, orthopedics. Chace Neff MD Sep 01, 2017 18:07
[2017-09-01 19:50] VITALS: BP 119/65; PULSE 81; RESP 18; TEMP 98.1; O2SAT 99
[2017-09-01 23:30] VITALS: BP 116/68; PULSE 86; RESP 18; TEMP 97.2; O2SAT 98
[2017-09-02 03:50] VITALS: BP 114/56; PULSE 82; RESP 18; TEMP 97.4; O2SAT 99
[2017-09-02] MEDS: DEXAMETHASONE SOD PHOS 4 MG/ML VIAL IV PUSH SCH ×3 (05:28→21:27)
[2017-09-02] MEDS: FAMOTIDINE 20 MG/2 ML VIAL IV PUSH SCH ×2 (05:28→18:20)
[2017-09-02] MEDS: oxyCODONE/ACETAMINOPHEN 10 MG/325 MG TAB PO PRN ×2 (05:29→12:10)
[2017-09-02] MEDS: PILOCARPINE HCL 5 MG TAB PO SCH ×3 (05:29→21:27)
[2017-09-02 07:53] VITALS: BP 100/55; PULSE 82; RESP 17; TEMP 97.3; O2SAT 96
[2017-09-02] MEDS: TAMSULOSIN HCL 0.4 MG CAP PO SCH (08:27)
[2017-09-02] MEDS: DOCUSATE SODIUM 50 MG/SENNA 8.6 MG TAB PO SCH ×2 (08:27→21:27)
[2017-09-02] MEDS: SODIUM CHLORIDE 0.9% FLUSH 10 ML FLUSH IV FLUSH SCH ×2 (08:30→21:28)
--- NOTE | 2017-09-02 10:04 | PD.ONC.PN ---
Subjective Subjective Remarks Afebrile Patient reports pain is well controlled with Percocet Plan to take a shower this morning No other acute complaints Objective Data Date Time Temp Pulse Resp B/P (MAP) Pulse Ox O2 Delivery O2 Flow Rate FiO2 09/02/17 07:53 97.3 82 17 100/55 (70) 96 09/02/17 03:50 97.4 82 18 114/56 (75) 99 09/01/17 23:30 97.2 86 18 116/68 (84) 98 09/01/17 19:50 98.1 81 18 119/65 (83) 99 09/01/17 15:56 98.2 92 18 118/66 (83) 98 09/01/17 12:00 97.7 100 18 121/64 (83) 100 09/02/17 09/02/17 09/02/17 07:00 15:00 23:00 Intake Total 480 ml Balance 480 ml Result Diagram: 08/31/17 0509 08/31/17 0509 Administered Medications Medications (Trade) Dose Ordered Sig/Kristi Route PRN Reason Start Time Stop Time Status Last Admin Dose Admin Sodium Chloride 1,000 ml @ 65 mls/hr [id number] IV 08/30/17 18:00 09/01/17 10:17 Sodium Chloride (NS Flush) 2 ml UNSCH PRN IV FLUSH FLUSH AFTER USING IV ACCESS 08/30/17 17:45 08/31/17 05:32 Sodium Chloride (NS Flush) 2 ml BID IV FLUSH 08/30/17 21:00 09/02/17 08:30 Oxycodone/ Acetaminophen (Percocet 5-325 Mg) 1 tab Q6H PRN PO PAIN SCALE 3 TO 5 08/30/17 17:45 08/31/17 11:07 Oxycodone/ Acetaminophen (Percocet 10-325 Mg) 1 tab Q6H PRN PO PAIN SCALE 6 TO 10 08/30/17 17:45 09/02/17 05:29 Senna/Docusate Sodium (Palma-Colace) 1 tab BID PO 08/30/17 21:00 09/02/17 08:27 Tamsulosin HCl (Flomax) 0.4 mg DAILY PO 08/30/17 19:00 09/02/17 08:27 Dexamethasone Sodium Phosphate (Decadron Inj) 4 mg Q8HR IV PUSH 08/30/17 22:00 09/02/17 05:28 Famotidine (Pepcid Inj) 20 mg Q12H IV PUSH 08/30/17 18:00 09/02/17 05:28 Pilocarpine (Salagen) 5 mg Q8HR PO 08/30/17 22:00 09/02/17 05:29 Objective Remarks GENERAL: Older male sitting up in bed watching TV in no obvious distress SKIN: Warm and dry. HEAD: Normocephalic. EYES: No scleral icterus. No injection or drainage. Wearing glasses NECK: Supple, trachea midline. No JVD or lymphadenopathy. CARDIOVASCULAR: Regular rate and rhythm without murmurs. RESPIRATORY: Breath sounds equal bilaterally. No accessory muscle use. GASTROINTESTINAL: Abdomen soft, non-tender, nondistended. EXTREMITIES: No cyanosis, or edema. MUSCULOSKELETAL: Adequate muscle tone. NEUROLOGICAL: No obvious focal deficit. Awake, alert, and oriented x3. Assessment/Plan Problem List: (1) History of head and neck cancer ICD Codes: Z85.89 - Personal history of malignant neoplasm of other organs and systems Plan: --Patient with diffuse bony metastatic disease --Pathology pending from ileum biopsy Hx/Workup: Patient was originally diagnosed with head and neck cancer in May 2016 was treated in [place] with concurrent chemo therapy and radiation. He was reported to be in remission. Over the past several months he has had increasing diffuse pain when he is ambulating. He had a nuclear medicine bone scan on August 22 that showed a heterogenous increased bony uptake from the mid thoracic region through the sacrum involving the bony pelvic ring proximal femur and multiple ribs. (2) Malignant neoplasm metastatic to lumbar spine with unknown primary site ICD Codes: C79.51 - Secondary malignant neoplasm of bone; C80.1 - Malignant ( primary) neoplasm, unspecified Plan: --Path pending from ileum biopsy --CT chest abdomen pelvis shows diffuse bony metastatic disease. --There does not appear to be any visceral disease --On Decadron 4 mg every 8 Assessment 67-year-old male with history of head neck cancer admitted with diffuse pain from bony metastatic disease Plan 1. Await biopsy results 2. Continue Decadron 3. Supportive care Attending Statement The exam, history, and the medical decision-making described in the above note were completed with the assistance of the mid-level provider. I reviewed and agree with the findings presented. I attest that I had a [id number] encounter with the patient on the same day, and personally performed and documented my assessment and findings in the medical record. 67 year old man resting comfortably in bed. He reports pain is still present and is diffuse. Pain is exacerbated by movement. He takes as needed pain medication every six hours. [address] on long acting morphine sulfate [address] scan with evidence of bony metastatic disease. Awaiting biopsy results. WIll discuss with XRT consideration of palliative XRT to spinal lesion. Eleanor Quintana Sep 02, 2017 10:04 Zoila Murrieta MD Sep 02, 2017 14:27
[2017-09-02 12:00] VITALS: BP 120/66; PULSE 95; RESP 17; TEMP 97.6; O2SAT 99
[2017-09-02 16:00] VITALS: BP 118/59; PULSE 94; RESP 17; TEMP 97.5; O2SAT 99
[2017-09-02] MEDS: SODIUM CHLOR 0.9% 1000 ML INJ 1,000 ML IV SCH (17:05)
--- NOTE | 2017-09-02 17:13 | HHI.PR ---
Subjective Remarks Follow-up for intractable pain from bony metastatic disease. Patient is currently doing well. His pain is well controlled. Denies any chest pain, shortness of breath, fever or chills. He does not want to leave the hospital before biopsy results are reported. Objective Vitals Vital Signs Date Time Temp Pulse Resp B/P (MAP) Pulse Ox O2 Delivery O2 Flow Rate FiO2 09/02/17 16:00 97.5 94 17 118/59 (78) 99 09/02/17 12:00 97.6 95 17 120/66 (84) 99 09/02/17 07:53 97.3 82 17 100/55 (70) 96 09/02/17 03:50 97.4 82 18 114/56 (75) 99 09/01/17 23:30 97.2 86 18 116/68 (84) 98 09/01/17 19:50 98.1 81 18 119/65 (83) 99 I/O 09/01/17 09/01/17 09/01/17 09/02/17 09/02/17 09/02/17 07:00 15:00 23:00 07:00 15:00 23:00 Intake Total 360 ml 720 ml 720 ml 480 ml 600 ml Balance 360 ml 720 ml 720 ml 480 ml 600 ml Intake Oral 360 ml 720 ml 720 ml 480 ml 600 ml # Voids 2 3 4 2 5 # Bowel Movements 0 1 0 0 Result Diagram: 08/31/17 0509 08/31/17 0509 Imaging Last Impressions Chest CT 09/01/17 0000 Signed Impressions: Service Date/Time: Friday, September 01, 2017 15:38 - CONCLUSION: Widespread bony metastatic disease site of primarily not identified Amrit Chun MD FACR Abdomen/Pelvis CT 09/01/17 0000 Signed Impressions: Service Date/Time: Friday, September 01, 2017 15:38 - CONCLUSION: Widespread bony metastatic disease. Site of primary is not identified. Amrit Chun MD FACR Bone Biopsy CT 08/31/17 0000 Signed Impressions: Service Date/Time: August 13:03 - CONCLUSION: Uncomplicated CT guided biopsy. José Luis Chun MD Objective Remarks GENERAL: Alert, oriented 3, NAD. SKIN: Warm and dry. HEAD: Normocephalic. EYES: No scleral icterus. No injection or drainage. NECK: Supple, trachea midline. No JVD or lymphadenopathy. CARDIOVASCULAR: Regular rate and rhythm without murmurs, gallops, or rubs. RESPIRATORY: Breath sounds equal bilaterally. No accessory muscle use. GASTROINTESTINAL: Abdomen soft, non-tender, nondistended. MUSCULOSKELETAL: No cyanosis, or edema. BACK: Nontender without obvious deformity. No CVA tenderness. Procedures Right ileum biopsy 08/31/2017. A/P Problem List: (1) Intractable back pain ICD Code: M54.9 - Dorsalgia, unspecified (2) History of head and neck cancer ICD Code: Z85.89 - Personal history of malignant neoplasm of other organs and systems (3) Malignant neoplasm metastatic to lumbar spine with unknown primary site ICD Code: C79.51 - Secondary malignant neoplasm of bone; C80.1 - Malignant ( primary) neoplasm, unspecified (4) History of dysphasia ICD Code: Z87.898 - Personal history of other specified conditions Assessment and Plan 67-year-old male with past medical history significant for head and neck cancer who presents to the hospital as a direct admission after being referred here from his medical oncologist Dr. Murrieta due to intractable pain, concern for metastatic lesions. Intractable pain Metastatic lesions Hx of head and neck CA -Per Dr. Murrieta's note patient underwent chemoradiation for head and neck cancer. -Nuclear medicine bone scan completed on 08/22 with increased uptake in mid thoracic region, subsequent MRI showing metastatic lesions greatest at T9,T10. Ther are also noted lateral paravertebral regions on anterior epidural space at T7-T11 indenting the anterior thecal sac. -s/p right ilium bone biopsy by interventional radiology. Orthopedic surgery is following. -Currently on acetaminophen, morphine sustained-release, hydromorphone for pain management. -Also on Percocet PRN. -Continue dexamethasone 4 mg IV every 8 hours. -PT/OT Weight loss Poor p.o. intake -Likely secondary to metastatic disease. IV fluids for hydration -Continue Regular diet with boost shakes 3 times daily -Pilocarpine is helping him to eat better. BPH - continue Flomax Full code. Lovenox for DVT Prophylaxis. Crescencio Lynn DO Sep 02, 2017 5:13 pm
[2017-09-02] MEDS: ENOXAPARIN SODIUM 40 MG/0.4 ML SYRINGE SQ SCH (18:21)
[2017-09-02 20:00] VITALS: BP 114/64; PULSE 92; RESP 20; TEMP 97.9; O2SAT 98
[2017-09-02] MEDS: MORPHINE SULFATE 15 MG CONTROLLED RELEASE TAB PO SCH (21:27)
[2017-09-02 23:42] VITALS: BP 110/56; PULSE 84; RESP 18; TEMP 97.7; O2SAT 98
[2017-09-03] MEDS: FAMOTIDINE 20 MG/2 ML VIAL IV PUSH SCH ×2 (05:53→17:41)
[2017-09-03] MEDS: PILOCARPINE HCL 5 MG TAB PO SCH ×3 (05:53→22:27)
[2017-09-03] MEDS: DEXAMETHASONE SOD PHOS 4 MG/ML VIAL IV PUSH SCH ×3 (05:53→22:28)
[2017-09-03 07:17] LABS: AUTOMATED NEUTROPHIL # 8.5 TH/MM3 (1.8-7.7); BASOPHIL % 0.1 % (0.0-2.0); EOSINOPHIL % 0.1 % (0.0-4.0); HEMATOCRIT 26.9 % (39.0-51.0); HEMOGLOBIN 9.3 GM/DL (13.0-17.0); LYMPHOCYTE # 0.8 TH/MM3 (1.0-4.8); MEAN CELL VOLUME 90.5 FL (80.0-100.0); MEAN CORPUSCULAR HEMOGLOBIN 31.2 PG (27.0-34.0); MEAN CORPUSCULAR HGB CONC 34.5 % (32.0-36.0); MEAN PLATELET VOLUME 7.1 FL (7.0-11.0); MONO % 10.6 % (0.0-8.0); MONOCYTE # 1.1 TH/MM3 (0-0.9); NEUT % 81.2 % (16.0-70.0); PLATELET COUNT 201 TH/MM3 (150-450); RED BLOOD COUNT 2.97 MIL/MM3 (4.50-5.90); RED CELL DISTRIBUTION WIDTH 15.8 % (11.6-17.2); WHITE BLOOD COUNT 10.4 TH/MM3 (4.0-11.0)
[2017-09-03 07:33] LABS: ALBUMIN 2.8 GM/DL (3.4-5.0); AST (GOT) 49 U/L (15-37); BICARBONATE 27.8 MEQ/L (21.0-32.0); BLOOD UREA NITROGEN 25 MG/DL (7-18); CALCIUM 8.9 MG/DL (8.5-10.1); CHLORIDE 101 MEQ/L (98-107); GLOMERULAR FILTRATION RATE 84 ML/MIN (>89); GLUCOSE,RANDOM 96 MG/DL (74-106); SODIUM (NA) 137 MEQ/L (136-145)
[2017-09-03 07:34] LABS: ALT (GPT) 16 U/L (12-78); IRON (FE) 77 MCG/DL (65-175)
[2017-09-03 07:53] VITALS: BP 125/58; PULSE 84; RESP 18; TEMP 97.2; O2SAT 98
[2017-09-03 07:59] LABS: % SATURATION IRON PROFILE 33.5 % (20-50); ALKALINE PHOSPHATASE 148 U/L (45-117); FERRITIN 1266 NG/ML (26-388); FOLATE 8.5 NG/ML (3.1-17.5); TOTAL BILIRUBIN ADULT 0.3 MG/DL (0.2-1.0); TOTAL IRON BINDING CAPACITY 230 MCG/DL (250-450); TOTAL PROTEIN 6.2 GM/DL (6.4-8.2)
[2017-09-03] MEDS: DOCUSATE SODIUM 50 MG/SENNA 8.6 MG TAB PO SCH ×2 (08:03→22:27)
[2017-09-03] MEDS: SODIUM CHLOR 0.9% 1000 ML INJ 1,000 ML IV SCH ×2 (08:03→22:32)
[2017-09-03] MEDS: TAMSULOSIN HCL 0.4 MG CAP PO SCH (08:03)
[2017-09-03] MEDS: SODIUM CHLORIDE 0.9% FLUSH 10 ML FLUSH IV FLUSH SCH ×2 (08:04→22:32)
[2017-09-03] MEDS: MORPHINE SULFATE 15 MG CONTROLLED RELEASE TAB PO SCH (09:00)
[2017-09-03 09:17] LABS: BANDS 11 % (0-6); LYMPHOCYTES 10 % (9-44); METAMYELOCYTES 2 % (0-1); MONOCYTES 8 % (0-8); MYELOCYTES 5 % (0-0); NEUTROPHIL # MANUAL DIFF 8.4 TH/MM3 (1.8-7.7); POLYS (SEG NEUTROPHILS) 63 % (16-70)
[2017-09-03 09:19] LABS: OVALOCYTES 1+ (NORMAL)
[2017-09-03 12:00] VITALS: BP 101/55; PULSE 100; RESP 18; TEMP 98.2; O2SAT 96
--- NOTE | 2017-09-03 17:13 | PD.ONC.PN ---
Subjective Subjective Remarks Resting comforably in bed. Improved pain. Walking in hallways. Reports that the extended release morphine does not improve his pain. Objective Data Date Time Temp Pulse Resp B/P (MAP) Pulse Ox O2 Delivery O2 Flow Rate FiO2 09/03/17 12:00 98.2 100 18 101/55 (70) 96 09/03/17 07:53 97.2 84 18 125/58 (80) 98 09/02/17 23:42 97.7 84 18 110/56 (74) 98 09/02/17 20:00 97.9 92 20 114/64 (81) 98 09/03/17 09/03/17 09/03/17 07:00 15:00 23:00 Intake Total 480 ml Balance 480 ml Result Diagram: 09/03/1760909/03/17 06 Laboratory Results Laboratory Tests Test 09/03/17 06:10 White Blood Count 10.4 TH/MM3 Red Blood Count 2.97 MIL/MM3 Hemoglobin 9.3 GM/DL Hematocrit 26.9 % Mean Corpuscular Volume 90.5 FL Mean Corpuscular Hemoglobin 31.2 PG Mean Corpuscular Hemoglobin Concent 34.5 % Red Cell Distribution Width 15.8 % Platelet Count 201 TH/MM3 Mean Platelet Volume 7.1 FL Neutrophils (%) (Auto) 81.2 % Lymphocytes (%) (Auto) 8.0 % Monocytes (%) (Auto) 10.6 % Eosinophils (%) (Auto) 0.1 % Basophils (%) (Auto) 0.1 % Neutrophils # (Auto) 8.5 TH/MM3 Lymphocytes # (Auto) 0.8 TH/MM3 Monocytes # (Auto) 1.1 TH/MM3 Eosinophils # (Auto) 0.0 TH/MM3 Basophils # (Auto) 0.0 TH/MM3 CBC Comment AUTO DIFF Differential Total Cells Counted 100 Neutrophils % (Manual) 63 % Band Neutrophils % 11 % Lymphocytes % 10 % Monocytes % 8 % Eosinophils % 1 % Neutrophils # (Manual) 8.4 TH/MM3 Metamyelocytes 2 % Myelocytes 5 % Differential Comment FINAL DIFF MANUAL Platelet Estimate NORMAL Platelet Morphology Comment NORMAL Ovalocytes 1+ Blood Urea Nitrogen 25 MG/DL Creatinine 0.90 MG/DL Random Glucose 96 MG/DL Total Protein 6.2 GM/DL Albumin 2.8 GM/DL Calcium Level 8.9 MG/DL Alkaline Phosphatase 148 U/L Aspartate Amino Transf (AST/SGOT) 49 U/L Alanine Aminotransferase (ALT/SGPT) 16 U/L Total Bilirubin 0.3 MG/DL Sodium Level 137 MEQ/L Potassium Level 4.0 MEQ/L Chloride Level 101 MEQ/L Carbon Dioxide Level 27.8 MEQ/L Anion Gap 8 MEQ/L Estimat Glomerular Filtration Rate 84 ML/MIN Iron Level 77 MCG/DL Total Iron Binding Capacity 230 MCG/DL Percent Iron Saturation 33.5 % Ferritin 1266 NG/ML Vitamin B12 Level 1102 PG/ML Folate 8.5 NG/ML Administered Medications Medications (Trade) Dose Ordered Sig/Kristi Route PRN Reason Start Time Stop Time Status Last Admin Dose Admin Sodium Chloride 1,000 ml @ 65 mls/hr [id number] IV 08/30/17 18:00 09/01/17 10:17 Sodium Chloride (NS Flush) 2 ml UNSCH PRN IV FLUSH FLUSH AFTER USING IV ACCESS 08/30/17 17:45 08/31/17 05:32 Sodium Chloride (NS Flush) 2 ml BID IV FLUSH 08/30/17 21:00 09/03/17 08:04 Oxycodone/ Acetaminophen (Percocet 5-325 Mg) 1 tab Q6H PRN PO PAIN SCALE 3 TO 5 08/30/17 17:45 08/31/17 11:07 Oxycodone/ Acetaminophen (Percocet 10-325 Mg) 1 tab Q6H PRN PO PAIN SCALE 6 TO 10 08/30/17 17:45 09/02/17 12:10 Senna/Docusate Sodium (Palma-Colace) 1 tab BID PO 08/30/17 21:00 09/03/17 08:03 Tamsulosin HCl (Flomax) 0.4 mg DAILY PO 08/30/17 19:00 09/03/17 08:03 Dexamethasone Sodium Phosphate (Decadron Inj) 4 mg Q8HR IV PUSH 08/30/17 22:00 09/03/17 14:08 Famotidine (Pepcid Inj) 20 mg Q12H IV PUSH 08/30/17 18:00 09/03/17 05:53 Pilocarpine (Salagen) 5 mg Q8HR PO 08/30/17 22:00 09/03/17 14:08 Morphine Sulfate (Oramorph Sr) 15 mg Q12HR PO 09/02/17 21:00 09/02/17 21:27 Enoxaparin Sodium (Lovenox Inj) 40 mg Q24H SQ 09/02/17 18:00 09/02/17 18:21 Objective Remarks GENERAL: thin man, no distress HEAD: Normocephalic. EYES: No scleral icterus. RESPIRATORY: No accessory muscle use. EXTREMITIES: No edema. MUSCULOSKELETAL: Adequate muscle tone. NEUROLOGICAL: No obvious focal deficit. Awake, alert, and oriented x3. PSYCHIATRIC: Appropriate mood and affect; insight and judgment normal. Assessment/Plan Problem List: (1) History of head and neck cancer ICD Codes: Z85.89 - Personal history of malignant neoplasm of other organs and systems Plan: --Patient with diffuse bony metastatic disease --Pathology pending from ileum biopsy Hx/Workup: Patient was originally diagnosed with head and neck cancer in May 2016 was treated in [place] with concurrent chemo therapy and radiation. He was reported to be in remission. Over the past several months he has had increasing diffuse pain when he is ambulating. He had a nuclear medicine bone scan on August 22 that showed a heterogenous increased bony uptake from the mid thoracic region through the sacrum involving the bony pelvic ring proximal femur and multiple ribs. (2) Malignant neoplasm metastatic to lumbar spine with unknown primary site ICD Codes: C79.51 - Secondary malignant neoplasm of bone; C80.1 - Malignant ( primary) neoplasm, unspecified Plan: --Path pending from ileum biopsy --CT chest abdomen pelvis shows diffuse bony metastatic disease. --There does not appear to be any visceral disease --On Decadron 4 mg every 8 Assessment 67-year-old male with history of head neck cancer admitted with diffuse pain from bony metastatic disease Plan 1. Metastatic bony disease in a patient with a history of head and neck cancer : awaiting results of biopsy. 2. Pain: well controlled with immediate release prn. Will discontinue oral extended release morphine. 3. Epidural mass/vertebral compression fracture: will plan to consider XRT/ kyphoplasty. Continue steroids. Zoila Murrieta MD Sep 03, 2017 17:13
[2017-09-03] MEDS: ENOXAPARIN SODIUM 40 MG/0.4 ML SYRINGE SQ SCH (17:41)
[2017-09-03 20:00] VITALS: BP 133/59; PULSE 98; RESP 18; TEMP 98.2; O2SAT 96
--- NOTE | 2017-09-03 23:49 | HHI.PR ---
Subjective Remarks Follow-up for intractable pain from bony metastatic disease. Patient is doing well. No acute concerns. He is adamant about staying in the hospital until his biopsy results are available. Objective Vitals Vital Signs Date Time Temp Pulse Resp B/P (MAP) Pulse Ox O2 Delivery O2 Flow Rate FiO2 09/03/17 20:00 98.2 98 18 133/59 (83) 96 09/03/17 12:00 98.2 100 18 101/55 (70) 96 09/03/17 07:53 97.2 84 18 125/58 (80) 98 I/O 09/03/17 09/03/17 09/03/17 09/04/17 09/04/17 09/04/17 07:00 15:00 23:00 07:00 15:00 23:00 Intake Total 480 ml Balance 480 ml Intake Oral 480 ml # Voids 2 # Bowel Movements 0 Result Diagram: 09/03/17 0610 09/03/17 0610 Objective Remarks GENERAL: Alert, oriented 3, NAD. SKIN: Warm and dry. HEAD: Normocephalic. EYES: No scleral icterus. No injection or drainage. NECK: Supple, trachea midline. No JVD or lymphadenopathy. CARDIOVASCULAR: Regular rate and rhythm without murmurs, gallops, or rubs. RESPIRATORY: Breath sounds equal bilaterally. No accessory muscle use. GASTROINTESTINAL: Abdomen soft, non-tender, nondistended. MUSCULOSKELETAL: No cyanosis, or edema. BACK: Nontender without obvious deformity. No CVA tenderness. Procedures Right ileum biopsy 08/31/2017. A/P Problem List: (1) Intractable back pain ICD Code: M54.9 - Dorsalgia, unspecified (2) History of head and neck cancer ICD Code: Z85.89 - Personal history of malignant neoplasm of other organs and systems (3) Malignant neoplasm metastatic to lumbar spine with unknown primary site ICD Code: C79.51 - Secondary malignant neoplasm of bone; C80.1 - Malignant ( primary) neoplasm, unspecified (4) History of dysphasia ICD Code: Z87.898 - Personal history of other specified conditions Assessment and Plan 67-year-old male with past medical history significant for head and neck cancer who presents to the hospital as a direct admission after being referred here from his medical oncologist Dr. Murrieta due to intractable pain, concern for metastatic lesions. Intractable pain Metastatic lesions Hx of head and neck CA -Per Dr. Murrieta's note patient underwent chemoradiation for head and neck cancer. -Nuclear medicine bone scan completed on 08/22 with increased uptake in mid thoracic region, subsequent MRI showing metastatic lesions greatest at T9,T10. Ther are also noted lateral paravertebral regions on anterior epidural space at T7-T11 indenting the anterior thecal sac. -s/p right ilium bone biopsy by interventional radiology. Orthopedic surgery is following. -Currently on acetaminophen, Percocet , hydromorphone for pain management. -Also on Percocet PRN. -Continue dexamethasone 4 mg IV every 8 hours. Will switch to PO meds in the AM including Dexamethasone. -PT/OT Weight loss Poor p.o. intake -Likely secondary to metastatic disease. IV fluids for hydration -Continue Regular diet with boost shakes 3 times daily -Pilocarpine is helping him to eat better. BPH - continue Flomax Full code. Lovenox for DVT Prophylaxis. Discharge plan: Based on bx results and heme/onc input, potential discharge on or 09/05/2017. Crescencio Lynn DO Sep 03, 2017 23:49
[2017-09-04] VITALS (7 sets, daily range): BP systolic 109–138; BP diastolic 54–77; PULSE 71–101; RESP 16–18; TEMP 97.2–98.3; O2SAT 93–98
[2017-09-04] MEDS: PILOCARPINE HCL 5 MG TAB PO SCH ×3 (05:53→22:07)
[2017-09-04] MEDS: FAMOTIDINE 20 MG/2 ML VIAL IV PUSH SCH (05:54)
[2017-09-04] MEDS: DEXAMETHASONE SOD PHOS 4 MG/ML VIAL IV PUSH SCH ×3 (05:54→22:07)
[2017-09-04] MEDS: SODIUM CHLORIDE 0.9% FLUSH 10 ML FLUSH IV FLUSH PRN (05:54)
[2017-09-04] MEDS: DOCUSATE SODIUM 50 MG/SENNA 8.6 MG TAB PO SCH ×2 (08:39→20:42)
[2017-09-04] MEDS: TAMSULOSIN HCL 0.4 MG CAP PO SCH (08:39)
[2017-09-04] MEDS: SODIUM CHLORIDE 0.9% FLUSH 10 ML FLUSH IV FLUSH SCH ×2 (08:40→20:43)
--- NOTE | 2017-09-04 13:00 | PD.ONC.PN ---
Subjective Subjective Remarks Resting comfortably in bed in no distress. Discontinued oral extended release morphine as patient reported that he did not feel that this medication helped his pain. He was walking in hallways this weekend. he reports that his pain today is severe and "he can barely crawl to the bathroom" Objective Data Date Time Temp Pulse Resp B/P (MAP) Pulse Ox O2 Delivery O2 Flow Rate FiO2 09/04/17 12:42 98.3 90 16 114/67 (83) 98 09/04/17 08:00 98.3 101 18 109/54 (72) 98 09/04/17 04:00 97.2 82 18 121/69 (86) 98 09/04/17 00:00 97.8 71 18 138/63 (88) 93 09/03/17 20:00 98.2 98 18 133/59 (83) 96 Result Diagram: 09/03/17 0610 09/03/17 0610 Administered Medications Medications (Trade) Dose Ordered Sig/Kristi Route PRN Reason Start Time Stop Time Status Last Admin Dose Admin Sodium Chloride 1,000 ml @ 65 mls/hr [id number] IV 08/30/17 18:00 09/01/17 10:17 Sodium Chloride (NS Flush) 2 ml UNSCH PRN IV FLUSH FLUSH AFTER USING IV ACCESS 08/30/17 17:45 09/04/17 05:54 Sodium Chloride (NS Flush) 2 ml BID IV FLUSH 08/30/17 21:00 09/04/17 08:40 Oxycodone/ Acetaminophen (Percocet 5-325 Mg) 1 tab Q6H PRN PO PAIN SCALE 3 TO 5 08/30/17 17:45 08/31/17 11:07 Oxycodone/ Acetaminophen (Percocet 10-325 Mg) 1 tab Q6H PRN PO PAIN SCALE 6 TO 10 08/30/17 17:45 09/02/17 12:10 Senna/Docusate Sodium (Palma-Colace) 1 tab BID PO 08/30/17 21:00 09/04/17 08:39 Sennosides (Senokot) 17.2 mg Q12H PRN PO Moderate constipation 08/30/17 17:45 09/04/17 08:40 Tamsulosin HCl (Flomax) 0.4 mg DAILY PO 08/30/17 19:00 09/04/17 08:39 Dexamethasone Sodium Phosphate (Decadron Inj) 4 mg Q8HR IV PUSH 08/30/17 22:00 09/04/17 12:42 Famotidine (Pepcid Inj) 20 mg Q12H IV PUSH 08/30/17 18:00 09/04/17 05:54 Pilocarpine (Salagen) 5 mg Q8HR PO 08/30/17 22:00 09/04/17 12:42 Enoxaparin Sodium (Lovenox Inj) 40 mg Q24H SQ 09/02/17 18:00 09/03/17 17:41 Objective Remarks GENERAL: Well-nourished, well-developed patient. SKIN: Warm and dry. HEAD: Normocephalic. EYES: No scleral icterus. No injection or drainage. NECK: Supple, trachea midline. No JVD or lymphadenopathy. LYMPHATIC: No adenopathy. CARDIOVASCULAR: Regular rate and rhythm without murmurs. RESPIRATORY: Breath sounds equal bilaterally. No accessory muscle use. GASTROINTESTINAL: Abdomen soft, non-tender, nondistended. EXTREMITIES: No cyanosis, or edema. MUSCULOSKELETAL: Adequate muscle tone. NEUROLOGICAL: No obvious focal deficit. Awake, alert, and oriented x3. PSYCHIATRIC: Appropriate mood and affect; insight and judgment normal. Assessment/Plan Problem List: (1) History of head and neck cancer ICD Codes: Z85.89 - Personal history of malignant neoplasm of other organs and systems Plan: --Patient with diffuse bony metastatic disease --Pathology pending from ileum biopsy Hx/Workup: Patient was originally diagnosed with head and neck cancer in May 2016 was treated in [place] with concurrent chemo therapy and radiation. He was reported to be in remission. Over the past several months he has had increasing diffuse pain when he is ambulating. He had a nuclear medicine bone scan on August 22 that showed a heterogenous increased bony uptake from the mid thoracic region through the sacrum involving the bony pelvic ring proximal femur and multiple ribs. (2) Malignant neoplasm metastatic to lumbar spine with unknown primary site ICD Codes: C79.51 - Secondary malignant neoplasm of bone; C80.1 - Malignant ( primary) neoplasm, unspecified Plan: --Path pending from ileum biopsy --CT chest abdomen pelvis shows diffuse bony metastatic disease. --There does not appear to be any visceral disease --On Decadron 4 mg every 8 Assessment 67-year-old male with history of head neck cancer admitted with diffuse pain from bony metastatic disease Plan 1. Metastatic bony disease in a patient with a history of head and neck cancer : awaiting results of biopsy. 2. Pain: worsening today. worse with certain movements. Will continue prn pain medications. 3. Epidural mass/vertebral compression fracture: Continue steroids. Discussed case with Dr. Landers and Dr. Wu. He would be a candidate for kyphoplasty. Will await radiation oncology recommendations. Zoila Murrieta MD Sep 04, 2017 13:00
[2017-09-04] MEDS: SODIUM CHLOR 0.9% 1000 ML INJ 1,000 ML IV SCH (15:13)
[2017-09-04] MEDS: ENOXAPARIN SODIUM 40 MG/0.4 ML SYRINGE SQ SCH (16:18)
[2017-09-04] MEDS: FAMOTIDINE 20 MG TAB PO SCH (20:42)
--- NOTE | 2017-09-04 20:43 | HHI.PR ---
Subjective Remarks Follow-up for intractable pain from bony metastatic disease. Patient is currently doing well. No acute concerns. Objective Vitals Vital Signs Date Time Temp Pulse Resp B/P (MAP) Pulse Ox O2 Delivery O2 Flow Rate FiO2 09/04/17 20:00 97.8 97 16 122/77 (92) 98 09/04/17 16:18 98.2 91 16 113/59 (77) 97 09/04/17 12:42 98.3 90 16 114/67 (83) 98 09/04/17 08:00 98.3 101 18 109/54 (72) 98 09/04/17 04:00 97.2 82 18 121/69 (86) 98 09/04/17 00:00 97.8 71 18 138/63 (88) 93 I/O 09/03/17 09/03/17 09/03/17 09/04/17 09/04/17 09/04/17 07:00 15:00 23:00 07:00 15:00 23:00 Intake Total 480 ml 720 ml Balance 480 ml 720 ml Intake Oral 480 ml 720 ml # Voids 2 4 5 # Bowel Movements 0 1 Result Diagram: 09/03/17 0610 09/03/17 0610 Objective Remarks GENERAL: Alert, oriented 3, NAD. SKIN: Warm and dry. HEAD: Normocephalic. EYES: No scleral icterus. No injection or drainage. NECK: Supple, trachea midline. No JVD or lymphadenopathy. CARDIOVASCULAR: Regular rate and rhythm without murmurs, gallops, or rubs. RESPIRATORY: Breath sounds equal bilaterally. No accessory muscle use. GASTROINTESTINAL: Abdomen soft, non-tender, nondistended. MUSCULOSKELETAL: No cyanosis, or edema. BACK: Nontender without obvious deformity. No CVA tenderness. Procedures Right ileum biopsy 08/31/2017. A/P Problem List: (1) Intractable back pain ICD Code: M54.9 - Dorsalgia, unspecified (2) History of head and neck cancer ICD Code: Z85.89 - Personal history of malignant neoplasm of other organs and systems (3) Malignant neoplasm metastatic to lumbar spine with unknown primary site ICD Code: C79.51 - Secondary malignant neoplasm of bone; C80.1 - Malignant ( primary) neoplasm, unspecified (4) History of dysphasia ICD Code: Z87.898 - Personal history of other specified conditions Assessment and Plan 67-year-old male with past medical history significant for head and neck cancer who presents to the hospital as a direct admission after being referred here from his medical oncologist Dr. Murrieta due to intractable pain, concern for metastatic lesions. Intractable pain Metastatic lesions Hx of head and neck CA -Per Dr. Murrieta's note patient underwent chemoradiation for head and neck cancer. -Nuclear medicine bone scan completed on 08/22 with increased uptake in mid thoracic region, subsequent MRI showing metastatic lesions greatest at T9,T10. Ther are also noted lateral paravertebral regions on anterior epidural space at T7-T11 indenting the anterior thecal sac. -s/p right ilium bone biopsy by interventional radiology. Orthopedic surgery is following for possible kyphoplasty. - Radiation oncology consult pending. -Currently on acetaminophen, Percocet , hydromorphone for pain management. -Also on Percocet PRN. -Continue dexamethasone 4 mg IV every 8 hours. -PT/OT Weight loss Poor p.o. intake -Likely secondary to metastatic disease. IV fluids for hydration -Continue Regular diet with boost shakes 3 times daily -Pilocarpine is helping him to eat better. BPH - continue Flomax Full code. Lovenox for DVT Prophylaxis. Discharge plan: Depending on recs from Orthopedic sx, Radiation Onc and biopsy result. Crescencio Lynn DO Sep 04, 2017 20:43
[2017-09-05] MEDS: PILOCARPINE HCL 5 MG TAB PO SCH ×3 (05:56→22:55)
[2017-09-05] MEDS: DEXAMETHASONE SOD PHOS 4 MG/ML VIAL IV PUSH SCH ×3 (05:57→22:55)
[2017-09-05] MEDS: SODIUM CHLOR 0.9% 1000 ML INJ 1,000 ML IV SCH ×2 (06:41→22:05)
[2017-09-05 08:00] VITALS: BP 120/71; PULSE 92; RESP 16; TEMP 97.3; O2SAT 97
[2017-09-05] MEDS: TAMSULOSIN HCL 0.4 MG CAP PO SCH (09:09)
[2017-09-05] MEDS: FAMOTIDINE 20 MG TAB PO SCH ×2 (09:09→20:22)
[2017-09-05] MEDS: DOCUSATE SODIUM 50 MG/SENNA 8.6 MG TAB PO SCH ×2 (09:09→20:22)
[2017-09-05] MEDS: SODIUM CHLORIDE 0.9% FLUSH 10 ML FLUSH IV FLUSH SCH ×2 (09:11→20:22)
[2017-09-05 11:46] VITALS: BP 109/5; PULSE 89; RESP 16; TEMP 97.3; O2SAT 97
[2017-09-05] MEDS: oxyCODONE/ACETAMINOPHEN 10 MG/325 MG TAB PO PRN (13:58)
--- NOTE | 2017-09-05 14:32 | RC ---
cc: Alli Wu MD,Zoila Aldana MD DATE OF SERVICE: 09/04/2017 HISTORY OF PRESENT ILLNESS: Mr. Ramirez is a 67-year-old male who was diagnosed with head and neck cancer, treated approximately 16 months ago definitively. Now presents with widely metastatic disease. Biopsy is being obtained and pending. 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 We had seen him earlier today and did not go over this with him as not available. However, he is interested in proceeding with radiation therapy. He received radiation therapy in [place] and moved to [place]. His son is here. He reports having back pain and weakness and imaging demonstrates widespread metastatic disease and epidural changes T9 and T10, as well as involvement T7 through T11. PAST MEDICAL AND PAST SURGICAL HISTORY: Includes prior radiation therapy, head and neck cancer. FAMILY HISTORY: Mother and father . No first degree relatives with malignancy. SOCIAL HISTORY: . Does not smoke. He consumes alcohol. ALLERGIES: NO KNOWN DRUG ALLERGIES. MEDICATIONS: [place], tamsulosin. REVIEW OF SYSTEMS: CONSTITUTIONAL: He reports decreased appetite, fatigue, weight loss, bone pain. EYES: Denies double vision. EARS, NOSE, MOUTH, THROAT: Reports difficulty swallowing. Decreased hearing. PULMONARY: Reports some pain with inspiration. Shortness of breath while walking. SKIN: Denies rashes. PHYSICAL EXAMINATION: GENERAL: Thin man, mild distress due to discomfort. EYES: Extraocular muscles intact. No scleral icterus. EXTREMITIES: No clubbing, cyanosis or edema. Some muscle mass. NEUROLOGIC: Alert and oriented. Follows two step commands. IMPRESSION: Radiographic imaging data, reviewed outside MRIs, as well as a CT chest, abdomen and pelvis. RECOMMENDATIONS: We discussed palliative radiation therapy. We include the thoracic spine. He does have pain wrapping around his back along T9-T10 nerve distribution, below the nipple over the abdomen. We discussed pain with swallowing, sore throat. We discussed 10 fractions palliatively. Consider T6-T12. He expressed good understanding of treatment approach. We discussed pain with swallowing as a side effect. He is interested in proceeding with treatment. We will schedule him for CT simulation. Complex blocking will be done. We discussed with the patient it will be palliative, that he has disease outside of radiation [place]. He understands this, does wish to proceed with treatment. We discussed likely meaningful pain relief. Discussed his case with Dr. Murrieta as well. MD MICKEY Cordoba/LILLIAM , 05:48 PM , 06:30 PM
[2017-09-05 16:00] VITALS: BP 107/63; PULSE 69; RESP 16; TEMP 97.5; O2SAT 98
[2017-09-05] MEDS: ENOXAPARIN SODIUM 40 MG/0.4 ML SYRINGE SQ SCH (17:36)
--- NOTE | 2017-09-05 18:54 | HHI.PR ---
Subjective Remarks Follow-up for intractable pain from bony metastatic disease. Patient is currently doing well. Went to Rad Onc for simulation. He complains of significant back pain. No fever, chills. Objective Vitals Vital Signs Date Time Temp Pulse Resp B/P (MAP) Pulse Ox O2 Delivery O2 Flow Rate FiO2 09/05/17 16:00 97.5 69 16 107/63 (78) 98 09/05/17 11:46 97.3 89 16 109/5 (39) 97 09/05/17 08:00 97.3 92 16 120/71 (87) 97 09/04/17 23:58 97.7 75 18 127/65 (85) 97 09/04/17 20:00 97.8 97 16 122/77 (92) 98 I/O 09/04/17 09/04/17 09/04/17 09/05/17 09/05/17 09/05/17 07:00 15:00 23:00 07:00 15:00 23:00 Intake Total 720 ml 960 ml 600 ml Balance 720 ml 960 ml 600 ml Intake Oral 720 ml 960 ml 600 ml # Voids 4 5 4 4 # Bowel Movements 1 1 1 Result Diagram: 09/03/17 0610 09/03/17 0610 Imaging Last Impressions Chest CT 09/01/17 0000 Signed Impressions: Service Date/Time: Friday, September 01, 2017 15:38 - CONCLUSION: Widespread bony metastatic disease site of primarily not identified Amrit Chun MD FACR Abdomen/Pelvis CT 09/01/17 0000 Signed Impressions: Service Date/Time: Friday, September 01, 2017 15:38 - CONCLUSION: Widespread bony metastatic disease. Site of primary is not identified. Amrit Chun MD FACR Bone Biopsy CT 08/31/17 0000 Signed Impressions: Service Date/Time: August 13:03 - CONCLUSION: Uncomplicated CT guided biopsy. José Luis Chun MD Objective Remarks GENERAL: Alert, oriented 3, NAD. SKIN: Warm and dry. HEAD: Normocephalic. EYES: No scleral icterus. No injection or drainage. NECK: Supple, trachea midline. No JVD or lymphadenopathy. CARDIOVASCULAR: Regular rate and rhythm without murmurs, gallops, or rubs. RESPIRATORY: Breath sounds equal bilaterally. No accessory muscle use. GASTROINTESTINAL: Abdomen soft, non-tender, nondistended. MUSCULOSKELETAL: No cyanosis, or edema. BACK: Nontender without obvious deformity. No CVA tenderness. Procedures Right ileum biopsy 08/31/2017. A/P Problem List: (1) Intractable back pain ICD Code: M54.9 - Dorsalgia, unspecified (2) History of head and neck cancer ICD Code: Z85.89 - Personal history of malignant neoplasm of other organs and systems (3) Malignant neoplasm metastatic to lumbar spine with unknown primary site ICD Code: C79.51 - Secondary malignant neoplasm of bone; C80.1 - Malignant ( primary) neoplasm, unspecified (4) History of dysphasia ICD Code: Z87.898 - Personal history of other specified conditions Assessment and Plan 67-year-old male with past medical history significant for head and neck cancer who presents to the hospital as a direct admission after being referred here from his medical oncologist Dr. Murrieta due to intractable pain, concern for metastatic lesions. Intractable pain Metastatic lesions Hx of head and neck CA -Per Dr. Murrieta's note patient underwent chemoradiation for head and neck cancer. -Nuclear medicine bone scan completed on 08/22 with increased uptake in mid thoracic region, subsequent MRI showing metastatic lesions greatest at T9,T10. Ther are also noted lateral paravertebral regions on anterior epidural space at T7-T11 indenting the anterior thecal sac. -s/p right ilium bone biopsy by interventional radiology. Orthopedic surgery is following for possible kyphoplasty. - Radiation oncology consult pending. -Currently on acetaminophen, Percocet , hydromorphone for pain management. -Also on Percocet PRN. -Continue dexamethasone 4 mg IV every 8 hours. -PT/OT - Rad onc simulation done today. Weight loss Poor p.o. intake -Likely secondary to metastatic disease. IV fluids for hydration -Continue Regular diet with boost shakes 3 times daily -Pilocarpine is helping him to eat better. BPH - continue Flomax Full code. Lovenox for DVT Prophylaxis. Discharge plan: Depending on recs from Orthopedic sx, Radiation Onc and biopsy result. Crescencio Lynn DO Sep 05, 2017 18:54
[2017-09-05 20:25] VITALS: BP 103/60; PULSE 69; RESP 18; TEMP 97.8; O2SAT 98
[2017-09-05] MEDS: oxyCODONE/ACETAMINOPHEN 5 MG/325 MG TAB PO PRN (22:55)
[2017-09-05 23:03] VITALS: BP 114/67; PULSE 73; RESP 18; TEMP 97.4; O2SAT 98
[2017-09-06 04:03] VITALS: BP 123/77; PULSE 86; RESP 16; TEMP 97.4; O2SAT 99
[2017-09-06] MEDS: PILOCARPINE HCL 5 MG TAB PO SCH ×3 (05:59→20:58)
[2017-09-06] MEDS: DEXAMETHASONE SOD PHOS 4 MG/ML VIAL IV PUSH SCH ×3 (06:00→21:00)
[2017-09-06] MEDS: SODIUM CHLORIDE 0.9% FLUSH 10 ML FLUSH IV FLUSH PRN (06:01)
[2017-09-06 07:53] VITALS: BP 104/65; PULSE 82; RESP 18; TEMP 97.7; O2SAT 97
[2017-09-06] MEDS: TAMSULOSIN HCL 0.4 MG CAP PO SCH (08:43)
[2017-09-06] MEDS: DOCUSATE SODIUM 50 MG/SENNA 8.6 MG TAB PO SCH ×2 (08:43→20:58)
[2017-09-06] MEDS: SODIUM CHLORIDE 0.9% FLUSH 10 ML FLUSH IV FLUSH SCH ×2 (08:43→21:00)
[2017-09-06] MEDS: FAMOTIDINE 20 MG TAB PO SCH ×2 (08:43→21:00)
[2017-09-06 11:05] VITALS: BP 106/62; PULSE 85; RESP 18; TEMP 98.1; O2SAT 98
--- NOTE | 2017-09-06 13:20 | HHI.PR ---
Subjective Remarks Patient reports he is feeling okay. Reports some back discomfort with certain movements. Objective Vitals Vital Signs Date Time Temp Pulse Resp B/P (MAP) Pulse Ox O2 Delivery O2 Flow Rate FiO2 09/06/17 12:23 09/06/17 11:05 98.1 85 18 106/62 (77) 98 09/06/17 08:47 09/06/17 07:53 97.7 82 18 104/65 (78) 97 09/06/17 04:03 97.4 86 16 123/77 (92) 99 09/05/17 23:03 97.4 73 18 114/67 (83) 98 09/05/17 20:25 97.8 69 18 103/60 (74) 98 09/05/17 16:00 97.5 69 16 107/63 (78) 98 I/O 09/05/17 09/05/17 09/05/17 09/06/17 09/06/17 09/06/17 07:00 15:00 23:00 07:00 15:00 23:00 Intake Total 960 ml 600 ml 0 ml Balance 960 ml 600 ml 0 ml Intake Oral 960 ml 600 ml IV Total 0 ml # Voids 4 4 2 # Bowel Movements 1 1 Result Diagram: 09/03/17 0610 09/03/17 0610 Objective Remarks GENERAL: This is a well-nourished, well-developed patient, in no apparent distress. CARDIOVASCULAR: Normal rate and regular rhythm without murmurs, gallops, or rubs. RESPIRATORY: Good respiratory efforts. Breath sounds equal and clear to auscultation bilaterally. GASTROINTESTINAL: Abdomen soft, non-tender, non-distended. Normal active bowel sounds MUSCULOSKELETAL: Extremities without cyanosis, or edema. NEURO: Alert & Oriented x4 to person, place, time, situation. Moves all ext x4 PSYCH: Appropriate mood and affect. Procedures Right ileum biopsy 08/31/2017. A/P Problem List: (1) Intractable back pain ICD Code: M54.9 - Dorsalgia, unspecified (2) History of head and neck cancer ICD Code: Z85.89 - Personal history of malignant neoplasm of other organs and systems (3) Malignant neoplasm metastatic to lumbar spine with unknown primary site ICD Code: C79.51 - Secondary malignant neoplasm of bone; C80.1 - Malignant ( primary) neoplasm, unspecified (4) History of dysphasia ICD Code: Z87.898 - Personal history of other specified conditions Assessment and Plan 67-year-old male with past medical history significant for head and neck cancer who presents to the hospital as a direct admission after being referred here from his medical oncologist Dr. Murrieta due to intractable pain, concern for metastatic lesions. Intractable pain Metastatic lesions Hx of head and neck CA -Per Dr. Murrieta's note patient underwent chemoradiation for head and neck cancer. -Nuclear medicine bone scan completed on 08/22 with increased uptake in mid thoracic region, subsequent MRI showing metastatic lesions greatest at T9,T10. Ther are also noted lateral paravertebral regions on anterior epidural space at T7-T11 indenting the anterior thecal sac. -s/p right ilium bone biopsy by interventional radiology. Orthopedic surgery is following for possible kyphoplasty. - Radiation oncology following -Currently on acetaminophen, Percocet , hydromorphone for pain management. -Also on Percocet PRN. -Continue dexamethasone 4 mg IV every 8 hours. -PT/OT - Rad onc simulation done. Weight loss Poor p.o. intake -Likely secondary to metastatic disease. IV fluids for hydration -Continue Regular diet with boost shakes 3 times daily -Pilocarpine is helping him to eat better. BPH - continue Flomax Full code. Lovenox for DVT Prophylaxis. Discharge Planning Radiation per oncology Irasema Love MD Sep 06, 2017 13:20
[2017-09-06] MEDS: SODIUM CHLOR 0.9% 1000 ML INJ 1,000 ML IV SCH (13:29)
[2017-09-06] MEDS: oxyCODONE/ACETAMINOPHEN 5 MG/325 MG TAB PO PRN ×2 (14:35→20:59)
[2017-09-06 15:55] VITALS: BP 115/66; PULSE 86; RESP 18; TEMP 98; O2SAT 99
[2017-09-06] MEDS: ENOXAPARIN SODIUM 40 MG/0.4 ML SYRINGE SQ SCH (18:07)
--- NOTE | 2017-09-06 18:17 | PD.ONC.PN ---
Subjective Subjective Remarks Resting comfortably in bed. Started radiation therapy today. Objective Data Date Time Temp Pulse Resp B/P (MAP) Pulse Ox O2 Delivery O2 Flow Rate FiO2 09/06/17 15:55 98.0 86 18 115/66 (82) 99 09/06/17 12:23 09/06/17 11:05 98.1 85 18 106/62 (77) 98 09/06/17 08:47 09/06/17 07:53 97.7 82 18 104/65 (78) 97 09/06/17 04:03 97.4 86 16 123/77 (92) 99 09/05/17 23:03 97.4 73 18 114/67 (83) 98 09/05/17 20:25 97.8 69 18 103/60 (74) 98 09/06/17 09/06/17 09/06/17 07:00 15:00 23:00 Intake Total 0 ml Balance 0 ml Result Diagram: 09/03/1710 09/03/17 0610 Administered Medications Medications (Trade) Dose Ordered Sig/Kristi Route PRN Reason Start Time Stop Time Status Last Admin Dose Admin Sodium Chloride 1,000 ml @ 65 mls/hr [id number] IV 08/30/17 18:00 09/01/17 10:17 Sodium Chloride (NS Flush) 2 ml UNSCH PRN IV FLUSH FLUSH AFTER USING IV ACCESS 08/30/17 17:45 09/06/17 06:01 Sodium Chloride (NS Flush) 2 ml BID IV FLUSH 08/30/17 21:00 09/06/17 08:43 Oxycodone/ Acetaminophen (Percocet 5-325 Mg) 1 tab Q6H PRN PO PAIN SCALE 3 TO 5 08/30/17 17:45 09/06/17 14:35 Oxycodone/ Acetaminophen (Percocet 10-325 Mg) 1 tab Q6H PRN PO PAIN SCALE 6 TO 10 08/30/17 17:45 09/05/17 13:58 Senna/Docusate Sodium (Palma-Colace) 1 tab BID PO 08/30/17 21:00 09/06/17 08:43 Sennosides (Senokot) 17.2 mg Q12H PRN PO Moderate constipation 08/30/17 17:45 3/26/18 08:40 Tamsulosin HCl (Flomax) 0.4 mg DAILY PO 08/30/17 19:00 09/06/17 08:43 Dexamethasone Sodium Phosphate (Decadron Inj) 4 mg Q8HR IV PUSH 08/30/17 22:00 09/06/17 13:54 Pilocarpine (Salagen) 5 mg Q8HR PO 08/30/17 22:00 09/06/17 13:53 Enoxaparin Sodium (Lovenox Inj) 40 mg Q24H SQ 09/02/17 18:00 09/06/17 18:07 Famotidine (Pepcid) 20 mg BID PO 09/04/17 21:00 09/06/17 08:43 Objective Remarks GENERAL: thin man in no distress HEAD: Normocephalic. EYES: No scleral icterus. No injection or drainage. RESPIRATORY: No accessory muscle use EXTREMITIES: No edema. NEUROLOGICAL: No obvious focal deficit. Awake, alert, and oriented x3. P Assessment/Plan Problem List: (1) History of head and neck cancer ICD Codes: Z85.89 - Personal history of malignant neoplasm of other organs and systems Plan: --Patient with diffuse bony metastatic disease --Pathology pending from ileum biopsy Hx/Workup: Patient was originally diagnosed with head and neck cancer in May 2016 was treated in [place] with concurrent chemo therapy and radiation. He was reported to be in remission. Over the past several months he has had increasing diffuse pain when he is ambulating. He had a nuclear medicine bone scan on August 22 that showed a heterogenous increased bony uptake from the mid thoracic region through the sacrum involving the bony pelvic ring proximal femur and multiple ribs. (2) Malignant neoplasm metastatic to lumbar spine with unknown primary site ICD Codes: C79.51 - Secondary malignant neoplasm of bone; C80.1 - Malignant ( primary) neoplasm, unspecified Plan: --Path pending from ileum biopsy --CT chest abdomen pelvis shows diffuse bony metastatic disease. --There does not appear to be any visceral disease --On Decadron 4 mg every 8 Assessment 67-year-old male with history of head neck cancer admitted with diffuse pain from bony metastatic disease Plan 1. Metastatic bony disease in a patient with a history of head and neck cancer : Biopsy results returned as SCC which fits with clinical picture of recent treatment for locally advanced head and neck cancer. Discussed treatment of head and neck cancer to include carboplatin, 5-FU, cetuximab. Patient is uncertain if he would like to move forward with chemotherapy. He will discuss with son. He reports that he has recently had port removed prior to his move to [place]. This can be placed in the outpatient setting. 2. Pain: well controlled. Graciela is walking to the bathroom and hallways. On prn pain medication. 3. Epidural mass/vertebral compression fracture: Continue steroids. Currently receiving palliiative radiation therapy. Cleared for discharge from oncology standpoint. Patient will need close follow up in oncology clinic. Zoila Murrieta MD Sep 06, 2017 18:17
[2017-09-06 20:51] VITALS: BP 118/66; PULSE 80; RESP 16; TEMP 98.1; O2SAT 98
[2017-09-07] VITALS (8 sets, daily range): BP systolic 103–131; BP diastolic 58–76; PULSE 76–108; RESP 16–20; TEMP 97.5–98.3; O2SAT 96–99
[2017-09-07] MEDS: SODIUM CHLOR 0.9% 1000 ML INJ 1,000 ML IV SCH ×2 (04:33→20:17)
[2017-09-07] MEDS: PILOCARPINE HCL 5 MG TAB PO SCH ×3 (04:37→21:01)
[2017-09-07] MEDS: DEXAMETHASONE SOD PHOS 4 MG/ML VIAL IV PUSH SCH ×3 (04:37→21:02)
[2017-09-07] MEDS ORDERED: OXYC1TAB63 PO (08:41)
[2017-09-07] MEDS ORDERED: DEXA4TAB PO (08:41)
[2017-09-07] MEDS ORDERED: TAMS5CAP PO (08:41)
[2017-09-07] MEDS ORDERED: FAMO20TA2 PO (08:41)
[2017-09-07] MEDS ORDERED: PILO5 PO (08:41)
--- NOTE | 2017-09-07 08:42 | HHI.DS ---
Discharge Summary Admission Date Aug 30, 2017 at 17:44 Discharge Date: Sep 09, 2017 Admitting Diagnosis Intractable back pain (1) Intractable back pain ICD Code: M54.9 - Dorsalgia, unspecified Diagnosis: Principal (2) History of head and neck cancer ICD Code: Z85.89 - Personal history of malignant neoplasm of other organs and systems Diagnosis: Principal (3) Malignant neoplasm metastatic to lumbar spine with unknown primary site ICD Code: C79.51 - Secondary malignant neoplasm of bone; C80.1 - Malignant ( primary) neoplasm, unspecified Diagnosis: Principal (4) History of dysphasia ICD Code: Z87.898 - Personal history of other specified conditions Diagnosis: Principal Procedures Right ileum biopsy 08/31/2017. Brief History - From Admission Written by Gracie Lu, acting as scribe for Dr. Frost on 08/30/17 at 17: 59. is a 67-year-old male with past medical history significant for head and neck cancer s/p chemo and radiation therapy in May 2016 with subsequent dysphasia requiring PEG tube placement for feeding who presents to the hospital as a direct admit from patient's oncologist . Review of Dr. Murrieta's note, patient presented to her office to establish care. Noted to have intractable back pain, along with diffuse body pain, decreased appetite, and unintentional weight loss. Patient underwent nuclear medicine bone scan on August 22 which showed heterogeneous increased bony uptake from the mid thoracic region through the sacrum involving bony pelvic ring proximal Femara in multiple ribs. Review of note also reveals patient underwent MRI of thoracic spine with contrast on 08/22 and revealed post radiation changes of the spine with metastases lesions greatest at T9 and T10 with minimal loss of height at these levels. Enhancement of anterior lateral paravertebral regions as well as the anterior epidural space at T7-T11. Patient was noted to have intractable pain while at Dr. Schumacher's office, referred to ED for direct admission. Patient is seen and examined in his bed resting comfortably, does not appear to be in any pain. Reports that over the past several weeks he has been taking oxycodone for pain control and complains of increased dry mouth. He is also been eating minimally trying to eat enough calories, swelling has become difficult due to dry mouth. He reports back and lower back pain which is increased in severity when he stands or moves. He is also complaining of anterior thigh pain when elevating legs off of bed. CBC/BMP: 09/03/17 0610 09/03/17 0610 PE at Discharge GENERAL: This is a well-nourished, well-developed patient, in no apparent distress. CARDIOVASCULAR: Normal rate and regular rhythm without murmurs, gallops, or rubs. RESPIRATORY: Good respiratory efforts. Breath sounds equal and clear to auscultation bilaterally. GASTROINTESTINAL: Abdomen soft, non-tender, non-distended. Normal active bowel sounds MUSCULOSKELETAL: Extremities without cyanosis, or edema. NEURO: Alert & Oriented x4 to person, place, time, situation. Moves all ext x4 PSYCH: Appropriate mood and affect. Pt Condition on Discharge: Good Discharge Disposition: Discharge Home Discharge Instructions DIET: Follow Instructions for: Heart Healthy Diet Activities you can perform: Regular-No Restrictions Irasema Love MD Sep 07, 2017 08:42
[2017-09-07] MEDS: SODIUM CHLORIDE 0.9% FLUSH 10 ML FLUSH IV FLUSH SCH ×2 (09:00→21:02)
[2017-09-07] MEDS: TAMSULOSIN HCL 0.4 MG CAP PO SCH (09:07)
[2017-09-07] MEDS: DOCUSATE SODIUM 50 MG/SENNA 8.6 MG TAB PO SCH ×2 (09:07→21:01)
[2017-09-07] MEDS: FAMOTIDINE 20 MG TAB PO SCH ×2 (09:07→21:01)
[2017-09-07] MEDS: oxyCODONE/ACETAMINOPHEN 5 MG/325 MG TAB PO PRN ×2 (09:08→17:15)
--- NOTE | 2017-09-07 09:27 | HHI.PR ---
Subjective Remarks Patient reports he is experiencing significant pain and can barely get to the bathroom. He wants the port placed while he is in the Hospital. Objective Vitals Vital Signs Date Time Temp Pulse Resp B/P (MAP) Pulse Ox O2 Delivery O2 Flow Rate FiO2 09/07/17 08:15 97.8 87 18 119/67 (84) 97 09/07/17 04:34 97.7 79 16 103/58 (73) 98 09/07/17 00:00 97.6 76 16 116/65 (82) 98 09/06/17 20:51 98.1 80 16 118/66 (83) 98 09/06/17 15:55 98.0 86 18 115/66 (82) 99 09/06/17 12:23 09/06/17 11:05 98.1 85 18 106/62 (77) 98 I/O 09/06/17 09/06/17 09/06/17 09/07/17 09/07/17 09/07/17 07:00 15:00 23:00 07:00 15:00 23:00 Intake Total 0 ml 720 ml Output Total 1550 ml 800 ml Balance 0 ml -830 ml -800 ml Intake Oral 720 ml IV Total 0 ml Output Urine Total 1550 ml 800 ml Result Diagram: 09/03/17 0610 09/03/17 0610 Objective Remarks GENERAL: This is a well-nourished, well-developed patient, in no apparent distress. CARDIOVASCULAR: Normal rate and regular rhythm without murmurs, gallops, or rubs. RESPIRATORY: Good respiratory efforts. Breath sounds equal and clear to auscultation bilaterally. GASTROINTESTINAL: Abdomen soft, non-tender, non-distended. Normal active bowel sounds MUSCULOSKELETAL: Extremities without cyanosis, or edema. Endorses diffuse pain on the thoracic and lumbar regions. NEURO: Alert & Oriented x4 to person, place, time, situation. Moves all ext x4 PSYCH: Appropriate mood and affect. Procedures Right ileum biopsy 08/31/2017. A/P Problem List: (1) Intractable back pain ICD Code: M54.9 - Dorsalgia, unspecified (2) History of head and neck cancer ICD Code: Z85.89 - Personal history of malignant neoplasm of other organs and systems (3) Malignant neoplasm metastatic to lumbar spine with unknown primary site ICD Code: C79.51 - Secondary malignant neoplasm of bone; C80.1 - Malignant ( primary) neoplasm, unspecified (4) History of dysphasia ICD Code: Z87.898 - Personal history of other specified conditions Assessment and Plan 67-year-old male with past medical history significant for head and neck cancer who presents to the hospital as a direct admission after being referred here from his medical oncologist Dr. Murrieta due to intractable pain, concern for metastatic lesions. Intractable pain Metastatic lesions Hx of head and neck CA -Per Dr. Murrieta's note patient underwent chemoradiation for head and neck cancer. -Nuclear medicine bone scan completed on 08/22 with increased uptake in mid thoracic region, subsequent MRI showing metastatic lesions greatest at T9,T10. Ther are also noted lateral paravertebral regions on anterior epidural space at T7-T11 indenting the anterior thecal sac. -s/p right ilium bone biopsy by interventional radiology. Orthopedic surgery is following for possible kyphoplasty. - Radiation oncology following -Currently on acetaminophen, Percocet , hydromorphone for pain management. -Also on Percocet PRN. -Continue dexamethasone 4 mg every 8 hours. Change to oral. -PT/OT - Rad onc simulation done. - [facility]. Port placement ordered. Weight loss Poor p.o. intake -Likely secondary to metastatic disease. Oral intake much improved. -Continue Regular diet with boost shakes 3 times daily -Pilocarpine is helping him to eat better. Debility: Patient reports he has gotten weaker. He is afraid of falling. States he is having trouble ambulating to the bathroom. - Will have physical therapy evaluate the patient. BPH - continue Flomax Full code. Lovenox for DVT Prophylaxis. Discharge Planning Port placement today. Physical therapy to evaluate the patient. Anticipate discharge in about 48 hours pending his physical condition. Irasema Love MD Sep 07, 2017 09:27
[2017-09-07] MEDS ORDERED: VANCOMYCIN INJ 1,000 MG in SODIUM CHLOR 0.9% 250 ML INJ 250 ML IV SCH (11:15)
[2017-09-07] MEDS ORDERED: ceFAZolin 2 GM PREMIX 50 ML IV SCH (11:15)
--- NOTE | 2017-09-07 14:07 | PD.ONC.PN ---
Subjective Subjective Remarks Afebrile overnight. Patient resting in bed in nad. he reports he continues to have pain in his back, and is not ready to go home. He states he does not want to be medicated to the point of sedation, which is why he hasn't been using IV pain medications. Objective Data Date Time Temp Pulse Resp B/P (MAP) Pulse Ox O2 Delivery O2 Flow Rate FiO2 09/07/17 08:15 97.8 87 18 119/67 (84) 97 09/07/17 04:34 97.7 79 16 103/58 (73) 98 09/07/17 00:00 97.6 76 16 116/65 (82) 98 09/06/17 20:51 98.1 80 16 118/66 (83) 98 09/06/17 15:55 98.0 86 18 115/66 (82) 99 09/07/17 09/07/17 09/07/17 07:00 15:00 23:00 Output Total 800 ml Balance -800 ml Result Diagram: 09/03/1710 09/03/17 0610 Administered Medications Medications (Trade) Dose Ordered Sig/Kristi Route PRN Reason Start Time Stop Time Status Last Admin Dose Admin Sodium Chloride 1,000 ml @ 65 mls/hr [id number] IV 08/30/17 18:00 09/01/17 10:17 Sodium Chloride (NS Flush) 2 ml UNSCH PRN IV FLUSH FLUSH AFTER USING IV ACCESS 08/30/17 17:45 09/06/17 06:01 Sodium Chloride (NS Flush) 2 ml BID IV FLUSH 08/30/17 21:00 09/07/17 09:00 Oxycodone/ Acetaminophen (Percocet 5-325 Mg) 1 tab Q6H PRN PO PAIN SCALE 3 TO 5 08/30/17 17:45 09/07/17 09:08 Oxycodone/ Acetaminophen (Percocet 10-325 Mg) 1 tab Q6H PRN PO PAIN SCALE 6 TO 10 08/30/17 17:45 09/05/17 13:58 Senna/Docusate Sodium (Palma-Colace) 1 tab BID PO 08/30/17 21:00 09/07/17 09:07 Sennosides (Senokot) 17.2 mg Q12H PRN PO Moderate constipation 08/30/17 17:45 09/04/17 08:40 Tamsulosin HCl (Flomax) 0.4 mg DAILY PO 08/30/17 19:00 09/07/17 09:07 Dexamethasone Sodium Phosphate (Decadron Inj) 4 mg Q8HR IV PUSH 08/30/17 22:00 09/07/17 04:37 Pilocarpine (Salagen) 5 mg Q8HR PO 08/30/17 22:00 09/07/17 04:37 Enoxaparin Sodium (Lovenox Inj) 40 mg Q24H SQ 09/02/17 18:00 09/06/17 18:07 Famotidine (Pepcid) 20 mg BID PO 09/04/17 21:00 09/07/17 09:07 Objective Remarks GENERAL: Middle aged male, upright in bed. he appears comfortable and in nad. SKIN: Warm and dry. HEAD: Normocephalic. EYES: No injection or drainage. NECK: Supple, trachea midline. CARDIOVASCULAR: Regular rate and rhythm RESPIRATORY: Breath sounds equal bilaterally. No accessory muscle use. GASTROINTESTINAL: Abdomen soft, non-tender, nondistended. EXTREMITIES: No cyanosis MUSCULOSKELETAL: Adequate muscle tone. NEUROLOGICAL: awake and alert. normal speech. Assessment/Plan Problem List: (1) History of head and neck cancer ICD Codes: Z85.89 - Personal history of malignant neoplasm of other organs and systems Plan: --Patient with diffuse bony metastatic disease --plan to place port while inpatient. Hx/Workup: Patient was originally diagnosed with head and neck cancer in May 2016 was treated in [place] with concurrent chemo therapy and radiation. He was reported to be in remission. Over the past several months he has had increasing diffuse pain when he is ambulating. He had a nuclear medicine bone scan on August 22 that showed a heterogenous increased bony uptake from the mid thoracic region through the sacrum involving the bony pelvic ring proximal femur and multiple ribs. 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 --CT chest abdomen pelvis shows diffuse bony metastatic disease. --There does not appear to be any visceral disease --On Decadron 4 mg every 8 Assessment 67-year-old male with history of head neck cancer admitted with diffuse pain from bony metastatic disease Plan 1. Squamous cell carcinoma, likely recurrence of previous head and neck cancer. will consult invasive radiology for port placement. 2. Vertebral compression fx: continue XRT treatment. s/p 07/27 planned treatments. patient can receive further XRT outpatient, once discharged 3. Pain. continue current regimen of Percocet PRN pain. has not been using IV dilaudid for breakthrough. Patient clear for discharge from oncology perspective. follow up in clinic within 1-2 weeks of discharge. Odette Camp Sep 07, 2017 14:07
[2017-09-07] MEDS ORDERED: MIDAZOLAM HCL 5 MG/5 ML VIAL ONE (15:04)
[2017-09-07] MEDS ORDERED: fentaNYL CITRATE 250 MCG/5 ML AMP ONE (15:04)
[2017-09-07] MEDS ORDERED: LIDOCAINE 1%/EPINEPHrine 1:100,000 SOLN 30 ML VIAL ONE (15:08)
[2017-09-07] MEDS ORDERED: SODIUM CHLORIDE 0.9% FLUSH 10 ML FLUSH IVF PRN (16:15)
--- NOTE | 2017-09-07 16:16 | RADRPT ---
EXAM DATE/TIME: 09/07/2017 14:18 [facility] COMPARISON: No previous studies available for comparison. INDICATIONS : Patient presents with head and neck cancer in need of port placement for chemotherapy treatment. MEDICAL HISTORY : Head and neck cancer s/p chemo and radiation SURGICAL HISTORY : Pyloric stenosis surgery Plantar wart removal Left lymph node biopsy Right upper chest port placement and removal PEG tube insertion and removal ENCOUNTER: Initial ACUITY: 1 week PAIN SCORE: 0/10 LOCATION: N/A FLUORO TIME: 0.4 minutes IMAGE SERIES: 0 SEDATION TIME: 30 minutes ACCESS: Right internal jugular vein SEDATION: 1.) 2 mg midazolam (Versed) IV 2.) 100 mcg fentanyl (Sublimaze) IV Prophylactic antibiotics were administered with appropriate pre-procedure timing. Vancomycin within 2 hours of procedure, Ancef (or alternative) within 1 hour of procedure. DEVICE: 1. 8 [place] single lumen BioFlo port PROCEDURE : 1. Continuous pulse oximetry and EKG monitoring. 2. Intravenous conscious sedation. 3. Ultrasound guidance for venous access. 4. Fluoroscopic guided implantable central venous port placement. The patient was placed supine. The neck was prepped in sterile fashion. Full sterile technique was u sed, including cap, mask, sterile gloves and gown, and a large sterile sheet. Hand hygiene and 2% ch lorhexidine Betadine was utilized per protocol for cutaneous antisepsis with appropriate dry time for site. Sterile gel and sterile probe cover were utilized for ultrasound guidance. The skin and sub cutaneous tissues were infiltrated with local anesthetic solution. Under direct ultrasound guidance, central venous access was accomplished in the targeted vessel. The ultrasound images depicting access guidance were stored and saved to PACS for permanent record. A s ubcutaneous pocket was created using blunt dissection. The port was introduced to the pocket. The c atheter tubing was fed through a subcutaneous tunnel to the venotomy site. The catheter tubing was c ut to a suitable length and then was introduced through a valved Peel-Away sheath and positioned with catheter tubing tip at the cavo-atrial junction level. The pocket incision was closed with subcutic ular Vicryl suture. Steri-Strips were applied. The port was flushed and locked with heparin solutio n per protocol. Sterile dressing was applied to the site. The patient tolerated the procedure well. Conscious sedation was performed with the prescribed dosages and duration as above in the presence of an independent trained radiology nurse to assist in the monitoring of the patient. EKG and oximetry remained stable throughout the procedure. The patient tolerated the procedure well and there were no complications. The patient was sent to post anesthesia recovery in stable condition. CONCLUSION: Uncomplicated ultrasound and fluoroscopic guided implanted central venous port catheter placement as described in detail above. An 8 [place] Power port was placed. Robel Hardin MD on September 07, 2017 at 16:14 Board Certified Radiologist. This report was verified electronically.
[2017-09-07] MEDS: SODIUM CHLORIDE 0.9% FLUSH 10 ML FLUSH IV FLUSH PRN (17:15)
[2017-09-07] MEDS: ENOXAPARIN SODIUM 40 MG/0.4 ML SYRINGE SQ SCH (18:37)
[2017-09-07] MEDS ORDERED: HYDROmorphone HCL PF 2 MG/ML VIAL IV PUSH ONE (20:00)
[2017-09-08 00:32] VITALS: BP 104/63; PULSE 77; RESP 18; TEMP 97.7; O2SAT 98
[2017-09-08 04:00] VITALS: RESP 16
[2017-09-08] MEDS: PILOCARPINE HCL 5 MG TAB PO SCH ×3 (05:11→22:07)
[2017-09-08] MEDS: DEXAMETHASONE SOD PHOS 4 MG/ML VIAL IV PUSH SCH (05:11)
[2017-09-08] MEDS: oxyCODONE/ACETAMINOPHEN 10 MG/325 MG TAB PO PRN ×2 (05:12→11:55)
[2017-09-08] MEDS: TAMSULOSIN HCL 0.4 MG CAP PO SCH (08:27)
[2017-09-08] MEDS: DOCUSATE SODIUM 50 MG/SENNA 8.6 MG TAB PO SCH ×2 (08:28→19:59)
[2017-09-08] MEDS: FAMOTIDINE 20 MG TAB PO SCH ×2 (08:28→19:59)
[2017-09-08 08:30] VITALS: BP 132/80; PULSE 92; RESP 18; TEMP 97.7; O2SAT 100
[2017-09-08] MEDS: SODIUM CHLORIDE 0.9% FLUSH 10 ML FLUSH IV FLUSH SCH ×2 (09:00→20:03)
[2017-09-08 12:30] VITALS: BP 101/58; PULSE 83; RESP 18; TEMP 97.7; O2SAT 98
--- NOTE | 2017-09-08 14:17 | HHI.PR ---
Subjective Remarks Patient reports that he is feeling okay. Status post port placement. He states that he gets a shooting back pain whenever he gets up to walk. States he is afraid of falling. Objective Vitals Vital Signs Date Time Temp Pulse Resp B/P (MAP) Pulse Ox O2 Delivery O2 Flow Rate FiO2 09/08/17 12:30 97.7 83 18 101/58 (72) 98 09/08/17 08:30 97.7 92 18 132/80 (97) 100 09/08/17 04:00 16 09/08/17 00:32 97.7 77 18 104/63 (77) 98 09/07/17 20:00 98.3 88 20 107/66 (80) 96 09/07/17 17:23 97.5 108 18 131/76 (94) 98 09/07/17 17:00 93 18 113/58 (76) 98 09/07/17 16:30 93 16 111/58 (75) 97 09/07/17 16:10 97.5 96 16 114/60 (78) 99 I/O 09/07/17 09/07/17 09/07/17 09/08/17 09/08/17 09/08/17 07:00 15:00 23:00 07:00 15:00 23:00 Intake Total 720 ml 240 ml Output Total 800 ml 300 ml 800 ml Balance -800 ml 420 ml -560 ml Intake Oral 720 ml 240 ml Output Urine Total 800 ml 300 ml 800 ml Objective Remarks GENERAL: This is a well-nourished, well-developed patient, in no apparent distress. CARDIOVASCULAR: Normal rate and regular rhythm without murmurs, gallops, or rubs. RESPIRATORY: Good respiratory efforts. Breath sounds equal and clear to auscultation bilaterally. GASTROINTESTINAL: Abdomen soft, non-tender, non-distended. Normal active bowel sounds MUSCULOSKELETAL: Extremities without cyanosis, or edema. Endorses diffuse pain on the thoracic and lumbar regions. NEURO: Alert & Oriented x4 to person, place, time, situation. Moves all ext x4 PSYCH: Appropriate mood and affect. Procedures Right ileum biopsy 08/31/2017. A/P Problem List: (1) Intractable back pain ICD Code: M54.9 - Dorsalgia, unspecified (2) History of head and neck cancer ICD Code: Z85.89 - Personal history of malignant neoplasm of other organs and systems (3) Malignant neoplasm metastatic to lumbar spine with unknown primary site ICD Code: C79.51 - Secondary malignant neoplasm of bone; C80.1 - Malignant ( primary) neoplasm, unspecified (4) History of dysphasia ICD Code: Z87.898 - Personal history of other specified conditions Assessment and Plan 67-year-old male with past medical history significant for head and neck cancer who presents to the hospital as a direct admission after being referred here from his medical oncologist Dr. Murrieta due to intractable pain, concern for metastatic lesions. Intractable pain Metastatic lesions Hx of head and neck CA -Per Dr. Murrieta's note patient underwent chemoradiation for head and neck cancer. -Nuclear medicine bone scan completed on 08/22 with increased uptake in mid thoracic region, subsequent MRI showing metastatic lesions greatest at T9,T10. Ther are also noted lateral paravertebral regions on anterior epidural space at T7-T11 indenting the anterior thecal sac. -s/p right ilium bone biopsy by interventional radiology. Orthopedic surgery is following for possible kyphoplasty. - Radiation oncology following -Also on Percocet PRN. -Continue dexamethasone 4 mg every 8 hours. Change to oral. -PT/OT - Rad onc simulation done. -Status post port placement. We discussed pain management at length today and the need to mobilize. Will start patient on Oramorph and leave Percocet for breakthrough. We discussed the potential addictive nature of opiates at length. The patient mentioned wanting the pain to be eliminated but we discussed the goal of pain control is to allow him to remain functional. Weight loss Poor p.o. intake -Likely secondary to metastatic disease. Oral intake much improved. -Continue Regular diet with boost shakes 3 times daily -Pilocarpine is helping him to eat better. Debility: Patient reports he has gotten weaker. He is afraid of falling. States he is having trouble ambulating to the bathroom. - Will have physical therapy evaluate the patient. BPH - continue Flomax Full code. Lovenox for DVT Prophylaxis. Discharge Planning Physical therapy to evaluate the patient. Anticipate discharge tomorrow if pain control goals achieve. Irasema Love MD Sep 08, 2017 14:16
[2017-09-08] MEDS: DEXAMETHASONE 4 MG TAB PO SCH ×2 (14:32→22:07)
[2017-09-08] MEDS: ENOXAPARIN SODIUM 40 MG/0.4 ML SYRINGE SQ SCH (16:50)
[2017-09-08] MEDS: MORPHINE SULFATE 30 MG CONTROLLED RELEASE TAB PO SCH ×2 (16:50→22:07)
[2017-09-08 16:57] VITALS: BP 112/64; PULSE 78; RESP 18; TEMP 98; O2SAT 100
[2017-09-08] MEDS: SODIUM CHLOR 0.9% 1000 ML INJ 1,000 ML IV SCH (19:50)
[2017-09-09 00:34] VITALS: BP 97/58; PULSE 69; RESP 17; TEMP 97.6; O2SAT 97
[2017-09-09] MEDS: SODIUM CHLOR 0.9% 1000 ML INJ 1,000 ML IV SCH (03:05)
[2017-09-09 04:32] VITALS: BP 105/63; PULSE 71; RESP 18; TEMP 96.8; O2SAT 98
[2017-09-09] MEDS: PILOCARPINE HCL 5 MG TAB PO SCH ×2 (06:14→13:59)
[2017-09-09] MEDS: MORPHINE SULFATE 30 MG CONTROLLED RELEASE TAB PO SCH ×2 (06:15→13:59)
[2017-09-09] MEDS: DEXAMETHASONE 4 MG TAB PO SCH ×2 (06:15→13:59)
[2017-09-09 08:00] VITALS: BP 109/66; PULSE 100; RESP 18; TEMP 98.2; O2SAT 100
--- NOTE | 2017-09-09 09:08 | PD.ONC.PN ---
Subjective Subjective Remarks Afebrile overnight. patient resting in bed in nad. states his pain is better controlled today. reports he has not had a bowel movement despite use of laxative yesterday. Objective Data Date Time Temp Pulse Resp B/P (MAP) Pulse Ox O2 Delivery O2 Flow Rate FiO2 09/09/17 04:32 96.8 71 18 105/63 (77) 98 09/09/17 00:34 97.6 69 17 97/58 (71) 97 09/08/17 16:57 98.0 78 18 112/64 (80) 100 09/08/17 12:30 97.7 83 18 101/58 (72) 98 09/09/17 09/09/17 09/09/17 07:00 15:00 23:00 Intake Total 240 ml Balance 240 ml Administered Medications Medications (Trade) Dose Ordered Sig/Kristi Route PRN Reason Start Time Stop Time Status Last Admin Dose Admin Sodium Chloride 1,000 ml @ 65 mls/hr [id number] IV 08/30/17 18:00 09/01/17 10:17 Sodium Chloride (NS Flush) 2 ml UNSCH PRN IV FLUSH FLUSH AFTER USING IV ACCESS 08/30/17 17:45 09/07/17 17:15 Sodium Chloride (NS Flush) 2 ml BID IV FLUSH 08/30/17 21:00 09/08/17 20:03 Oxycodone/ Acetaminophen (Percocet 5-325 Mg) 1 tab Q6H PRN PO PAIN SCALE 3 TO 5 08/30/17 17:45 09/07/17 17:15 Oxycodone/ Acetaminophen (Percocet 10-325 Mg) 1 tab Q6H PRN PO PAIN SCALE 6 TO 10 08/30/17 17:45 09/08/17 11:55 Senna/Docusate Sodium (Palma-Colace) 1 tab BID PO 08/30/17 21:00 09/08/17 19:59 Magnesium Hydroxide (Milk Of Magnesia Liq) 30 ml Q12H PRN PO Mild constipation 08/30/17 17:45 09/07/17 21:04 Sennosides (Senokot) 17.2 mg Q12H PRN PO Moderate constipation 08/30/17 17:45 09/04/17 08:40 Lactulose (Lactulose Liq) 30 ml DAILY PRN PO SEVERE CONSITIPATION 08/30/17 17:45 09/08/17 05:12 Tamsulosin HCl (Flomax) 0.4 mg DAILY PO 08/30/17 19:00 09/08/17 08:27 Pilocarpine (Salagen) 5 mg Q8HR PO 08/30/17 22:00 09/09/17 06:14 Enoxaparin Sodium (Lovenox Inj) 40 mg Q24H SQ 09/02/17 18:00 09/08/17 16:50 Famotidine (Pepcid) 20 mg BID PO 09/04/17 21:00 09/08/17 19:59 Vancomycin HCl 1000 mg/Sodium Chloride 250 ml @ 250 mls/hr FIELD ACCOUNT MANAGER IV 09/07/17 11:15 09/11/17 11:14 09/07/17 14:39 Cefazolin Sodium/ Dextrose 50 ml @ 100 mls/hr FIELD ACCOUNT MANAGER IV 09/07/17 11:15 09/11/17 11:14 09/07/17 16:20 Dexamethasone (Decadron) 4 mg Q8HR PO 09/08/17 14:00 09/09/17 06:15 Morphine Sulfate (Oramorph Sr) 30 mg Q8HR PO 09/08/17 16:45 09/09/17 06:15 Objective Remarks GENERAL: Middle aged male, sitting up in bed in [facility]. SKIN: Warm and dry. HEAD: Normocephalic. EYES: No injection or drainage. NECK: Supple, trachea midline. CARDIOVASCULAR: Regular rate and rhythm RESPIRATORY: Breath sounds equal bilaterally. No accessory muscle use. GASTROINTESTINAL: Abdomen soft, non-tender, nondistended. EXTREMITIES: No cyanosis NEUROLOGICAL: awake and alert. normal speech. no obvious focal deficit. Assessment/Plan Problem List: (1) History of head and neck cancer ICD Codes: Z85.89 - Personal history of malignant neoplasm of other organs and systems Plan: --Patient with diffuse bony metastatic disease --s/p port placement. Hx/Workup: Patient was originally diagnosed with head and neck cancer in May 2016 was treated in [place] with concurrent chemo therapy and radiation. He was reported to be in remission. Over the past several months he has had increasing diffuse pain when he is ambulating. He had a nuclear medicine bone scan on August 22 that showed a heterogenous increased bony uptake from the mid thoracic region through the sacrum involving the bony pelvic ring proximal femur and multiple ribs. 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 --CT chest abdomen pelvis shows diffuse bony metastatic disease. --There does not appear to be any visceral disease --On Decadron 4 mg every 8 Assessment 67-year-old male with history of head neck cancer admitted with diffuse pain from bony metastatic disease Plan 1. Squamous cell carcinoma, likely recurrence of previous head and neck cancer. s/p port placement. plan for treatment in clinic once outpatient. 2. epidural mass/Vertebral compression fx: has received / xrt. 3. Pain. seems to be controlled with oramorph 30mg PO q 8 hours + Percocet for breakthrough. continue decadron. Patient clear for discharge from oncology perspective. follow up in clinic within 1-2 weeks of discharge. Attending Statement The exam, history, and the medical decision-making described in the above note were completed with the assistance of the mid-level provider. I reviewed and agree with the findings presented. I attest that I had a [id number] encounter with the patient on the same day, and personally performed and documented my assessment and findings in the medical record. Back pain has improved. He will continue XRT. F/u with after d/c. Continue supportive care. Odette Camp Sep 09, 2017 09:08 Roosevelt Beasley MD Sep 09, 2017 11:50
[2017-09-09] MEDS: SODIUM CHLORIDE 0.9% FLUSH 10 ML FLUSH IV FLUSH SCH (10:04)
[2017-09-09] MEDS: TAMSULOSIN HCL 0.4 MG CAP PO SCH (10:04)
[2017-09-09] MEDS: FAMOTIDINE 20 MG TAB PO SCH (10:04)
[2017-09-09] MEDS: DOCUSATE SODIUM 50 MG/SENNA 8.6 MG TAB PO SCH (10:04)
[2017-09-09] MEDS ORDERED: MORP1TAB25 PO (10:37)
[2017-09-09] MEDS ORDERED: PERI PO (10:37)
[2017-09-09] MEDS ORDERED: WALKER WHEELS/F1 MIS (10:42)
--- NOTE | 2017-09-09 10:54 | HHI.DS ---
Discharge Summary Admission Date Aug 30, 2017 at 17:44 Discharge Date: Sep 09, 2017 Admitting Diagnosis Intractable back pain (1) Intractable back pain ICD Code: M54.9 - Dorsalgia, unspecified Diagnosis: Principal (2) History of head and neck cancer ICD Code: Z85.89 - Personal history of malignant neoplasm of other organs and systems Diagnosis: Principal (3) Malignant neoplasm metastatic to lumbar spine with unknown primary site ICD Code: C79.51 - Secondary malignant neoplasm of bone; C80.1 - Malignant ( primary) neoplasm, unspecified Diagnosis: Principal (4) History of dysphasia ICD Code: Z87.898 - Personal history of other specified conditions Diagnosis: Principal Procedures Right ileum biopsy 08/31/2017. Brief History - From Admission HPI from the admitting physician is a 67-year-old male with past medical history significant for head and neck cancer s/p chemo and radiation therapy in May 2016 with subsequent dysphasia requiring PEG tube placement for feeding who presents to the hospital as a direct admit from patient's oncologist . Review of Dr. uMrrieta's note, patient presented to her office to establish care. Noted to have intractable back pain, along with diffuse body pain, decreased appetite, and unintentional weight loss. Patient underwent nuclear medicine bone scan on August 22 which showed heterogeneous increased bony uptake from the mid thoracic region through the sacrum involving bony pelvic ring proximal Femara in multiple ribs. Review of note also reveals patient underwent MRI of thoracic spine with contrast on 08/22 and revealed post radiation changes of the spine with metastases lesions greatest at T9 and T10 with minimal loss of height at these levels. Enhancement of anterior lateral paravertebral regions as well as the anterior epidural space at T7-T11. Patient was noted to have intractable pain while at Dr. Schumacher's office, referred to ED for direct admission. Patient is seen and examined in his bed resting comfortably, does not appear to be in any pain. Reports that over the past several weeks he has been taking oxycodone for pain control and complains of increased dry mouth. He is also been eating minimally trying to eat enough calories, swelling has become difficult due to dry mouth. He reports back and lower back pain which is increased in severity when he stands or moves. He is also complaining of anterior thigh pain when elevating legs off of bed. Imaging Last Impressions Port Line Insertion 09/07/17 0000 Signed Impressions: Service Date/Time: August 14:18 - CONCLUSION: Uncomplicated ultrasound and fluoroscopic guided implanted central venous port catheter placement as described in detail above. An 8 [place] [employer] port was placed. Robel Hardin MD Chest CT 09/01/17 0000 Signed Impressions: Service Date/Time: Friday, September 01, 2017 15:38 - CONCLUSION: Widespread bony metastatic disease site of primarily not identified Amrit Chun MD FACR Abdomen/Pelvis CT 09/01/17 0000 Signed Impressions: Service Date/Time: Friday, September 01, 2017 15:38 - CONCLUSION: Widespread bony metastatic disease. Site of primary is not identified. Amrit Chun MD FACR Bone Biopsy CT 08/31/17 0000 Signed Impressions: Service Date/Time: August 13:03 - CONCLUSION: Uncomplicated CT guided biopsy. José Luis Chun MD PE at Discharge GENERAL: This is a well-nourished, well-developed patient, in no apparent distress. CARDIOVASCULAR: Normal rate and regular rhythm without murmurs, gallops, or rubs. RESPIRATORY: Good respiratory efforts. Breath sounds equal and clear to auscultation bilaterally. GASTROINTESTINAL: Abdomen soft, non-tender, non-distended. Normal active bowel sounds MUSCULOSKELETAL: Extremities without cyanosis, or edema. Endorses diffuse pain on the thoracic and lumbar regions. NEURO: Alert & Oriented x4 to person, place, time, situation. Moves all ext x4 PSYCH: Appropriate mood and affect. Pt update on day of discharge Patient states he is concerned about bowel movements. Initially reported he did not have any bowel movements for 7 days. He later states that he has had several bowel movements but they were just really small. He states his pain is much better control and is able to move around better with the addition of Oramorph. he has been very reluctant to return home but after extensive conversation with him, he recognized that he has had maximal benefit from this hospitalization and that further recovery is more adequate in the home setting. Hospital Course 67-year-old male with past medical history significant for head and neck cancer who presents to the hospital as a direct admission after being referred here from his medical oncologist Dr. Murrieta due to intractable pain, concern for metastatic lesions. Evaluation and treatment course detailed below: Intractable pain Metastatic lesions Hx of head and neck CA -Per Dr. Murrieta's note patient underwent chemoradiation for head and neck cancer. -Nuclear medicine bone scan completed on 08/22 with increased uptake in mid thoracic region, subsequent MRI showing metastatic lesions greatest at T9,T10. Ther are also noted lateral paravertebral regions on anterior epidural space at T7-T11 indenting the anterior thecal sac. -s/p right ilium bone biopsy by interventional radiology. Orthopedic surgery consulted on the patient and concluded they would be available for kyphoplasty. -Patient was followed by radiation oncology and underwent simulation for palliative radiation. -The patient was started on dexamethasone and Percocet. Oramorph was added to his pain medication regimen and his pain is much better controlled to the point that he is functional. - Patient discharged home on scheduled Oramorph and Percocet for breakthrough pain. Weight loss Poor p.o. intake -Likely secondary to metastatic disease. Oral intake much improved. -Continue Regular diet with boost shakes 3 times daily -Pilocarpine is helping him to eat better. Constipation: Patient reported constipation but also states he had small bowel movements. KUB reveal moderate amount of stool. He has no abdominal discomfort. - Patient given enema and Lactulose. He had a bowel movement. He is discharged on Palma-Colace and lactulose. Discussed side effects of narcotics with the patient including constipation. Debility: Patient was followed by physical therapy. He can ambulate safely with a walker. This was ordered. Home viviana with PT ordered. BPH - continue Flomax Pt Condition on Discharge: Good Discharge Disposition: Disch w/ Home Health Serv Discharge Time: > 30 minutes Discharge Instructions DIET: Follow Instructions for: Heart Healthy Diet Activities you can perform: Regular-No Restrictions Follow up Referrals: Oncology/Hematology - 3-5 Days @ [facility] with Zoila Murrieta MD New Medications: Dexamethasone (Dexamethasone) 4 Mg Tab 4 MG PO Q8HR, #28 TAB 0 Refills Walker with Front Wheels (Walker with Front Wheels) 1 Mis Mis EA .XX DIRECTED, #1 0 Refills Famotidine (Famotidine) 20 Mg Tab 20 MG PO BID, #60 TAB Morphine ER (Morphine ER) 30 Mg Tab 30 MG PO Q8HR, #90 TAB Oxycodone HCl/Acetaminophen (Oxycodone-Acetaminophen 5-325) 5 Mg-325 Mg Tablet 1 TAB PO Q6H PRN for severe pain, #20 TAB Pilocarpine (Salagen) 5 Mg Tab 5 MG PO Q8HR, #60 TAB Sennosides-Docusate Sodium (Gnp Senna Plus 8.6-50 mg) 8.6 Mg-50 Mg Tab 1 TAB PO BID, #60 TAB Tamsulosin (Flomax) 0.4 Mg Cap 0.4 MG PO DAILY, #30 CAP Irasema Love MD Sep 09, 2017 10:54
--- NOTE | 2017-09-09 11:36 | RADRPT ---
EXAM DATE/TIME: 09/09/2017 11:15 [place] COMPARISON: No previous studies available for comparison. INDICATIONS : Constipation for one week. MEDICAL HISTORY : Head and neck cancer s/p chemo and radiation SURGICAL HISTORY : Pyloric stenosis surgery, Plantar wart removal, Left lymph node biopsy, Right upper chest port placem ent and removal, PEG tube insertion and removal ENCOUNTER: Initial ACUITY: 1 week PAIN SCORE: 0/10 LOCATION: Bilateral abdomen. FINDINGS: 3 AP supine views of the abdomen and pelvis were obtained and demonstrate a moderate amount of stool in the colon with no evidence of obstruction. No free air is identified. No organomegaly is evident. Osseous structures are intact. CONCLUSION: Moderate amount of stool in the colon consistent with the history of constipation. Lenin Dozier MD on September 09, 2017 at 11:33 Board Certified Radiologist. This report was verified electronically.
[2017-09-09] MEDS ORDERED: LACTULOSE SYRUP 20 GM/30 ML CUP PO ONE (12:00)
[2017-09-09] MEDS ORDERED: WHEEMIS3 (12:14)
[2017-09-09] MEDS ORDERED: SOD PHOSPHATE/SOD BIPHOSPHATE (ADULT) ENEMA 133ML PR ONE (13:00)
--- NOTE | 2017-09-09 14:34 | HHI.FF ---
Face to Face Verification Diagnosis: (1) History of head and neck cancer (2) Intractable back pain (3) Malignant neoplasm metastatic to lumbar spine with unknown primary site (4) Debility Physical Therapy Order: Evaluate and Treat, Improve ambulation, Strength and gait training Home Health Nursing Order: Medical education Medication education-adverse effect I have seen patient Mychal Ramirez on 09/09/17. My clinical findings support the need for the requested home health care services because: Ltd mobility - disease progression Need for psychosocial assistance I certify that my clinical findings support that this patient is homebound because: Unsteady gait/balance Irasema Love MD Sep 09, 2017 14:34
[2017-09-09] MEDS ORDERED: Lactulose Liq PO (14:39)
== END 2017-09-09 16:27 | disposition home health service (06) | DRG 478 ==
LOC: N06B 17:12 → OBSVTOIN 17:44 → HCIN 09-05 18:44
PROVIDERS: ADMIT Family Medicine; ATTEND Family Medicine
PROC: 0QB23ZX Excision of Right Pelvic Bone, Percutaneous Approach, Diagnostic (ICD-10-PCS; principal; 2017-08-31)
PROC: 0JH60WZ Insertion of Totally Implantable Vascular Access Device into Chest Subcutaneous Tissue and Fascia, Open Approach (ICD-10-PCS; 2017-09-07)
PROC: 02HV33Z Insertion of Infusion Device into Superior Vena Cava, Percutaneous Approach (ICD-10-PCS; 2017-09-07)
DX: C79.51 Secondary malignant neoplasm of bone (principal); Z68.1 Body mass index [BMI] 19.9 or less, adult; M48.54XA Collapsed vertebra, not elsewhere classified, thoracic region, initial encounter for fracture; R63.4 Abnormal weight loss; N40.0 Benign prostatic hyperplasia without lower urinary tract symptoms; G89.3 Neoplasm related pain (acute) (chronic); R53.81 Other malaise; Z85.819 Personal history of malignant neoplasm of unspecified site of lip, oral cavity, and pharynx; Z87.891 Personal history of nicotine dependence; Z92.3 Personal history of irradiation; Z92.21 Personal history of antineoplastic chemotherapy
CPT/HCPCS: 20220; 36561; 71260; 74018; 74177; 76937; 77001; 77012; 77263; 77290; 77295; 77300; 77334; 77412; 80053; 82607; 82728; 82746; 82948; 83036; 83540; 83550; 83735; 84100; 84439; 84443; 85007; 85027; 85610; 88305; 88307; 88311; 88341; 88342; 99152; 99153; 99222; C1788; J0690; J1100; J1170; J1642; J1650; J2250; J3010; J3370; J7030; J7050; J8540; Q9963; Q9967

== ENCOUNTER → 2017-09-21 | Outpatient (CLI) | payer OTHER ==
[~2017-09-21] MED LIST: DEXA4TAB PO; FAMO20TA2 PO; Lactulose Liq PO; MORP1TAB25 PO; OXYC1TAB63 PO; PERI PO; PILO5 PO; TAMS5CAP PO; TIMO0.5S30 EACH EYE; WALKER WHEELS/F1 MIS; WHEEMIS3
--- NOTE | 2017-09-23 11:16 | EKG ---
Date Performed: 09/21/2017 Time Performed: 11:41:33 PTAGE: 67 years EKG: Sinus rhythm NORMAL ECG NO PREVIOUS TRACING DOCTOR: Prabhu Skinner Interpretating Date/Time 09/23/2017 11:14:29
== END ==
LOC: CPRE 11:02
PROVIDERS: ATTEND Orthopaedic Surgery Orthopaedic Surgery of the Spine
DX: Z01.810 Encounter for preprocedural cardiovascular examination (principal); Z01.812 Encounter for preprocedural laboratory examination; Z01.818 Encounter for other preprocedural examination; S22.000G Wedge compression fracture of unspecified thoracic vertebra, subsequent encounter for fracture with delayed healing; X58.XXXD Exposure to other specified factors, subsequent encounter
CPT/HCPCS: 93005

== ENCOUNTER → 2017-09-22 | Day surgery (SDC) | payer OTHER ==
[~2017-09-22] VITALS: Ht 182.9 cm; Wt 59.0 kg
[~2017-09-22] MED LIST changes: +BUPIVACAINE/EPINEPHRINE 0.25% 50 ML VIAL ONE; +CHLORHEXIDINE GLUCONATE 2 % 1 PACK (2 CLOTHS) TOPICAL PRN; +DEXAMETHASONE SOD PHOS 4 MG/ML VIAL IV ONE; +DO NOT ADM ANY ANTICOAGULANT DRUGS PRN; +GLYCOPYRROLATE 1 MG/5 ML SYRINGE IV PUSH ONE; +LACTATED RINGER'S 1000 ML IV PRN; +LIDOCAINE 1%/EPINEPHrine 1:100,000 SOLN 30 ML VIAL ONE; +LIDOCAINE HCL 1% PF 5 ML SYRINGE OTHER ONE; -Lactulose Liq PO; +METOPROLOL TARTRATE 25 MG TAB PO PRN; +MORPHINE SULFATE 2 MG/ML SYRINGE IV PUSH PRN; +MORPHINE SULFATE 4 MG/ML INJ ONE; +NEOSTIGMINE 5 MG/5 ML SYRINGE IV PUSH ONE; +ONDANSETRON HCL 4 MG/2 ML VIAL IV ONE; +ONDANSETRON HCL 4 MG/2 ML VIAL IV PUSH PRN; +PHENYLEPH/NS 1000 MCG/10 ML SYR IV ONE; +POVIDONE IODINE 5% (ANTISEPSIS KIT) 4 APPLICATIONS EACH NARE PRN; +PROPOFOL 200 MG/20 ML AMP IV ONE; +ROCURONIUM INJ 50 MG/5 ML SYRINGE IV PUSH ONE; +SODIUM CHLORID 0.9% 500 ML IV PRN; +SODIUM CHLORIDE 0.9% FLUSH 10 ML FLUSH IV FLUSH PRN; +SODIUM CHLORIDE 0.9% FLUSH 10 ML FLUSH IV FLUSH SCH; -WHEEMIS3; +ceFAZolin 2 GM PREMIX 50 ML IV SCH; +ceFAZolin INJ 1,000 MG VIAL IV ONE; +ePHEDrine/NS 25 MG/5 ML SYRINGE IV ONE
[2017-09-22 06:27] LABS: AUTOMATED NEUTROPHIL # 3.2 TH/MM3 (1.8-7.7); BASOPHIL % 0.1 % (0.0-2.0); EOSINOPHIL % 0.1 % (0.0-4.0); HEMATOCRIT 33.3 % (39.0-51.0); HEMOGLOBIN 11.1 GM/DL (13.0-17.0); LYMPH % 4.1 % (9.0-44.0); LYMPHOCYTE # 0.2 TH/MM3 (1.0-4.8); MEAN CELL VOLUME 91.8 FL (80.0-100.0); MEAN CORPUSCULAR HEMOGLOBIN 30.6 PG (27.0-34.0); MEAN CORPUSCULAR HGB CONC 33.4 % (32.0-36.0); MEAN PLATELET VOLUME 7.4 FL (7.0-11.0); MONO % 10.1 % (0.0-8.0); MONOCYTE # 0.4 TH/MM3 (0-0.9); NEUT % 85.6 % (16.0-70.0); PLATELET COUNT 68 TH/MM3 (150-450); RED BLOOD COUNT 3.63 MIL/MM3 (4.50-5.90); WHITE BLOOD COUNT 3.7 TH/MM3 (4.0-11.0)
[2017-09-22 06:40] LABS: PROTHROMBIN TIME - PATIENT 10.5 SEC (9.8-11.6)
[2017-09-22 06:47] LABS: BICARBONATE 26.9 MEQ/L (21.0-32.0); CALCIUM 8.8 MG/DL (8.5-10.1); CREATININE 0.85 MG/DL (0.60-1.30)
[2017-09-22 07:11] LABS: BANDS 12 % (0-6); LYMPHOCYTES 5 % (9-44); METAMYELOCYTES 3 % (0-1); MONOCYTES 10 % (0-8); MYELOCYTES 1 % (0-0); NEUTROPHIL # MANUAL DIFF 3.1 TH/MM3 (1.8-7.7); POLYS (SEG NEUTROPHILS) 67 % (16-70); PROMYELOCYTES 1 % (0-0)
[2017-09-22 07:12] LABS: OVALOCYTES 1+ (NORMAL)
--- NOTE | 2017-09-22 09:48 | HHI.PR ---
cc: Jigna Landers MD Immediate Post Op Note Procedure Date: Sep 22, 2017 Pre Op Diagnosis: T5, T9, T10, and L1 pathologic compression fractures Metastatic cancer to spine Post Op Diagnosis: same Surgeon: Jigna Landers Hides Inspector(s): none Procedure: T9 & T10 kyphoplasties Complications: none Specimen(s) removed: T9 & T10 vertebral biopsy Estimated blood loss: 25cc Anesthesia: General Drains: None IVF Patient to: PACU Patient Condition: Good Implant/Devices: SEE IMPLANT LOG (if applicable) Date/Time of Procedure: SEE SURGICAL CARE RECORD Jigna Landers MD Sep 22, 2017 09:48
--- NOTE | 2017-09-22 10:45 | MP ---
cc: Jigna Landers MD DATE OF OPERATION: 09/22/2017 DATE OF PROCEDURE: 09/22/2017 PREOPERATIVE DIAGNOSES: 1. T5, T9, T10, and L1 pathologic compression fractures. 2. Metastatic cancer to the spine. POSTOPERATIVE DIAGNOSES: 1. T5, T9, T10, and L1 pathologic compression fractures. 2. Metastatic cancer to the spine. PROCEDURE PERFORMED: T9 and T10 kyphoplasty with bone biopsy. SURGEON: Jigna Landers MD MEAT CUTTING BLOCK REPAIRER: None. ANESTHESIA: General. ESTIMATED BLOOD LOSS: Approximately 10 mL. SPECIMENS: T9 and T10 vertebral biopsies. COMPLICATIONS: None. INDICATIONS FOR PROCEDURE: The patient is a 67-year-old gentleman who presented to my office at the beginning of August with debilitating back pain. Imaging revealed metastatic cancer to his spine with pathologic lesions and fractures at T9 and T10. The patient underwent full oncologic workup along with biopsy previously and was diagnosed with metastatic cancer to his spine. The patient has undergone radiation treatment from T6-T12 over the last couple of weeks without any significant improvement in his back pain. He continues to complain of debilitating back pain, especially with mobilization. I did offer the patient a kyphoplasty at T9 and T10. During this period, the patient was found to have a new T5 and L1 compression fracture as well. I did discuss with the patient that I would recommend a staged approach with kyphoplasty performing T9 and T10 with a later option of performing T5 and L1 kyphoplasty should he continue to have pain and wish to proceed with that. Risks of kyphoplasty were discussed with the patient including but not limited to: Infection, wound healing issues, persistent or worsening back pain, adjacent fracture, neurologic injury including weakness and/or paralysis, and other unforeseen complications. I did discuss with the patient my concern regarding his epidural metastases as well and that he could eventually have spinal cord compromise as a result of this. The patient is not interested in a decompression surgery at this point and would like to proceed with palliative kyphoplasty. DESCRIPTION OF PROCEDURE: The patient was brought back to the operating room and general anesthesia ensued. The patient was then carefully rolled over to a prone position on the operating room table with all bony prominences well padded. The back was then scrubbed with alcohol followed by Hibiclens followed by ChloraPrep. The back was then draped sterilely in standard sterile fashion. Antibiotics were given within one hour of incision. A timeout was performed to identify the correct patient, side, site and procedure to be performed. AP and lateral fluoroscopic images were used to identify the proper levels, T9 and T10. This was compared to preoperative studies. Skin markings were made. Local anesthesia was utilized with a combination of 1% lidocaine plain and 0.25% Marcaine with epinephrine. I initially approached T9. A single balloon approach was utilized from the left side. A small awl was placed in the subcutaneous tissue, through the pedicle and into the vertebral body at an oblique angle. At this time, a biopsy was taken from the T9 vertebral body. This was followed by placement of a balloon centrally. The balloon was noted to cross midline in the anterior 2/3 of the vertebral body and therefore a single balloon approach was utilized. I then turned my attention to the T10 level. Again, an approach was utilized from the left side first. A small awl was placed in the subcutaneous tissue, through the pedicle and into the vertebral body at an oblique angle. This was followed by placement of a balloon within the vertebral body, which was then elevated. This was noted not to cross midline and therefore a double balloon approach was utilized at this level and the same procedure was repeated from the right side. A small awl was placed in the subcutaneous tissue, through the pedicle and into the vertebral body at an oblique angle. This was followed by placement of a balloon within the vertebral body, which was then elevated. On the back table, methylmethacrylate was mixed. After approximately 11-12 minutes, the cement was injected into both the T9 and T10 levels. Once the cement had hardened, the tubes were removed. The wounds were irrigated and anesthetized. The skin was closed with 4-0 Vicryl sutures subcutaneously and followed by Dermabond on the skin. Intraoperative final radiographs demonstrated both T9 and T10 had good cement fill without evidence of extravasation. The patient was awoken after being positioned back supine on his bed. The patient was extubated and taken to the recovery room in satisfactory condition. FINDINGS: T5, T9, T10, and L1 compression fractures. Today T9 and T10 were addressed. Jigna Landers MD BLL/NAHOMY , 10:20 AM , 10:44 AM
[2017-09-22 11:10] VITALS: BP 128/77; PULSE 71; RESP 14; TEMP 97.6; O2SAT 100
--- NOTE | 2017-09-22 11:14 | RADRPT ---
EXAM DATE/TIME: 09/22/2017 09:03 [facility] COMPARISON: No previous studies available for comparison. INDICATIONS : Fracture T9, T10, kyphoplasty MEDICAL HISTORY : Carcinoma, lung. Carcinoma, prostatic. SURGICAL HISTORY : None. ENCOUNTER: Initial ACUITY: 1 day PAIN SCORE: Non-responsive. LOCATION: Thoracic spine FINDINGS: Status post kyphoplasty at T9 and T10. Anatomic alignment. CONCLUSION: Kyphoplasty as above. Amrit Chun MD FACR on September 22, 2017 at 11:08 Board Certified Radiologist. This report was verified electronically.
== END | disposition home or self-care (01) ==
LOC: HSDC 05:07
PROVIDERS: ATTEND Orthopaedic Surgery Orthopaedic Surgery of the Spine
DX: M48.55XA Collapsed vertebra, not elsewhere classified, thoracolumbar region, initial encounter for fracture (principal); C79.51 Secondary malignant neoplasm of bone; M47.816 Spondylosis without myelopathy or radiculopathy, lumbar region; Z01.818 Encounter for other preprocedural examination
CPT/HCPCS: 01936; 22513; 22515; 72070; 76000; 80048; 85007; 85027; 85610; 85730; 88307; 88341; 88342; J0690; J1100; J2270; J2370; J2405; J2710; J3010; 88311

== ENCOUNTER → 2017-09-29 | Day surgery (SDC) | payer OTHER ==
[~2017-09-29] VITALS: Ht 182.9 cm; Wt 59.5 kg
[~2017-09-29] MED LIST changes: +ACETAMINOPHEN 1000 MG/100 ML 100 ML IV ONE; +CHLORHEXIDINE GLUCONATE 4% SOLN 120 ML BTL TOPICAL SCH; -DEXAMETHASONE SOD PHOS 4 MG/ML VIAL IV ONE; +INSULIN HUMAN REGULAR 1,000 UNITS/10 ML VIAL SQ PRN; +LACTATED RINGER'S 1000 ML INJ 1,000 ML IV ONE; -LIDOCAINE 1%/EPINEPHrine 1:100,000 SOLN 30 ML VIAL ONE; +LIDOCAINE 1%/EPINEPHrine 1:100,000 SOLN 50 ML VIAL ONE; -MORPHINE SULFATE 4 MG/ML INJ ONE; +Post-op Orders (for Pharmacy) XX ONE; -TIMO0.5S30 EACH EYE; -ceFAZolin INJ 1,000 MG VIAL IV ONE
--- NOTE | 2017-09-29 10:00 | PD.OP ---
cc: Jigna Landers MD Operative Report Date of Surgery: Sep 29, 2017 Preoperative Diagnosis: T5 and L1 pathologic compression fractures Metastatic lesions to spine Postoperative Diagnosis: Same Procedure: T5 and L1 kyphoplasties Anesthesia: General Surgeon: Jigna Landers Sales Representative(s): None Operation and Findings: EBL: 20 cc Complications: None Specimens: None Indications for procedure: Patient is a 67-year-old gentleman found to have metastatic cancer to his spine. Patient was found to have pathologic T5, T9, T10 and L1 compression fractures. Patient previously underwent T9 and T10 kyphoplasty is with bone biopsy. Plan was for staged T5 and L1 kyphoplasty. Risks of surgery including but not limited to: Infection, cement extravasation, neurologic injury including weakness and/or paralysis, adjacent level fractures , wound issues, medical complications, and other unforeseen comp occasions were discussed with the patient. 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 Patient would like to proceed with T5 and L1 kyphoplasty. Description of procedure: The patient was brought to the operating room and general anesthesia then ensued. The patient was carefully rolled to a prone position on a radiolucent table. All pressure points were protected and the back was scrubbed with alcohol followed by Hibiclens followed by ChloraPrep and draped sterilely. Antibiotics were given within 1 hour time and a timeout was done. AP and lateral fluoroscopic images were used to identify the proper levels, T5 and L1. This was compared to preoperative studies. Skin markings were made. Local anesthesia was utilized with a combination of 1% lidocaine plain and 1/4% Marcaine with epinephrine. A double balloon approach was utilized from the left side, first at L1. A small awl was placed through the subcutaneous tissue, through the pedicle and into the vertebral body at an oblique angle. This was followed by placement of a balloon which was then elevated. The same procedure was repeated from the right side at L1. A small awl was placed to the subcutaneous tissue, through the pedicle into the vertebral body at oblique angle. The balloon was inserted into the vertebral body and then elevated. I then turned my attention to T5. AP and lateral fluoroscopic images were used to identify the proper level. At this level, radical identification especially the medial border of the pedicle was essentially nonexistent as a result of tumor. On the left side, pedicles were unable to be identified. On the right side, the pedicle was very difficult to identify in the medial border was not as clear as a typical vertebral body and as the more cranial T4 and caudal T6 pedicles were. The medial border of the T4 right-sided pedicle and the medial border of the T6 right-sided pedicle were utilized as a surrogate marker to identify where the likely medial border of T5 was. A very lateral extrapedicular approach was utilized from the right side with a small awl placed through the subcutaneous tissue, through the lateral aspect of the pedicle and into the vertebral body in an oblique angle. At this level, it was felt a single balloon approach was the safest and therefore a left-sided approach was not performed. The balloon was elevated within the vertebral body and did approach midline although did not completely cross to the left side of the vertebral body. On the back table methyl methacrylate was mixed. After approximately 11 minutes , the cement was injected into L1 followed by T5. Once the cement had hardened, the tube were removed. The wound was irrigated, anesthetized and closed with 3- 0 Vicryl followed by 3-0 Nylon. Intraoperative x-rays were obtained, which verified the cement remained within the vertebral body without extravasation. The patient was awakened and taken to the recovery room in satisfactory condition. Disposition: Plan is for patient to be mobilized in the postop area and discharged home today. Patient should follow-up in 2 weeks. Jigna Landers MD Sep 29, 2017 10:00
--- NOTE | 2017-09-29 11:53 | RADRPT ---
EXAM DATE/TIME: 09/29/2017 09:38 [facility] COMPARISON: No previous studies available for comparison. INDICATIONS : L1 kyphoplasty. MEDICAL HISTORY : Throat and neck cancer. SURGICAL HISTORY : PEG tube. T spine kyphoplasty. Infuse a port. ENCOUNTER: Initial ACUITY: 1 day PAIN SCORE: Non-responsive. LOCATION: Lumbar spine. FINDINGS: Status post L1 kyphoplasty with cementing good position. CONCLUSION: Cement in good position following L1 kyphoplasty Amrit Chun MD FACR on September 29, 2017 at 11:50 Board Certified Radiologist. This report was verified electronically.
--- NOTE | 2017-09-29 11:54 | RADRPT ---
EXAM DATE/TIME: 09/29/2017 09:38 [facility] COMPARISON: CT THORAX W CONTRAST, September 01, 2017, 15:38[facility] ( [facility]), September 22, 2017, 9:03. INDICATIONS : T5 kyphoplasty. MEDICAL HISTORY : Throat and neck cancer. SURGICAL HISTORY : Peg tube. T spine kyphoplasty. Infuse a port. ENCOUNTER: Initial ACUITY: 1 day PAIN SCORE: Non-responsive. LOCATION: Thoracic spine. FINDINGS: Status post T5 kyphoplasty cement in good position. CONCLUSION: Cement in good position. Amrit Chun MD FACR on September 29, 2017 at 11:51 Board Certified Radiologist. This report was verified electronically.
[2017-09-29 13:30] VITALS: BP 105/60; PULSE 90; RESP 16; TEMP 97.4; O2SAT 99
== END | disposition home or self-care (01) ==
LOC: HSDC 06:45
PROVIDERS: ATTEND Orthopaedic Surgery Orthopaedic Surgery of the Spine
DX: S22.050A Wedge compression fracture of T5-T6 vertebra, initial encounter for closed fracture (principal); S32.010A Wedge compression fracture of first lumbar vertebra, initial encounter for closed fracture; C79.51 Secondary malignant neoplasm of bone
CPT/HCPCS: 01936; 22513; 22515; 72070; 72100; J0131; J0690; J2370; J2405; J2710; J3010; J7120